=== PATIENT | male | born 1945 | race Hispanic/Latino ===

== ENCOUNTER 2022-08-23 16:17 | Observation (INO) | payer MEDICARE, MEDICAID ==
[~2022-08-23 16:17] MED LIST: Iopamidol-370 76% 500 ML 1 ML ONE
[2022-08-23] MEDS ORDERED: Nitroglycerin 2% Ointment 1 INCH/1 GM Packet ONE (16:43)
[2022-08-23] MEDS ORDERED: Aspirin Chewable 81 MG TAB ONE (16:43)
[2022-08-23] MEDS ORDERED: Acetaminophen 500 MG TAB ONE (16:57)
[2022-08-23 17:20] LABS: Hemoglobin 11.8 g/dL (14.0-18.0); Mean Corpuscular HGB CONC 33.8 g/dL (32.0-36.0); Mean Corpuscular Hemoglobin 29.7 pg (27.0-31.0); Mean Platelet Volume 8.9 fL (7.4-10.4); Platelet Count 173 10x3/uL (130-400); RBC Distribution Width 12.2 % (11.5-14.5); Red Blood Cell (RBC) Count 3.96 mill/uL (4.70-6.10); White Blood Cell (WBC) Count 8.5 10x3/uL (4.8-10.8)
[2022-08-23 17:37] LABS: ALT (SGPT) 37 U/L (8-55); AST (SGOT) 57 U/L (5-34); Albumin 3.9 g/dL (3.4-4.8); Alkaline Phosphatase 111 U/L (40-110); Anion Gap 20 mmol/L (10-20); BUN (Urea Nitrogen) 79 mg/dL (8.4-25.7); Bilirubin, Total 0.4 mg/dL (0.2-1.2); Calc. Creatinine Clearance 0 mL/min (70-130); Carbon Dioxide 19 mmol/L (23-31); Chloride 100 mmol/L (98-107); Estimated GFR 8; Globulin 4.2 g/dL (2.4-3.5); Glucose 167 mg/dL (83-110); Potassium 5.2 mmol/L (3.5-5.1); Protein, Total 8.1 g/dL (5.8-8.1); Sodium 134 mmol/L (136-145)
[2022-08-23 17:49] LABS: Lymphocytes 7 % (21-51); MDiff Complete? YES; Monocytes 5 % (0-10); Neutrophil 82 % (42-75); Platelet Morphology Comment Appears Adequate; RBC Morphology Normal; Reactive Lymphocytes 6 % (0-10)
[2022-08-23 17:55] LABS: CKMB 2.7 ng/mL (0-6.6)
[2022-08-23] MEDS ORDERED: Ondansetron PF 4 MG/2 ML Vial IVP PRN (22:36)
[2022-08-23] MEDS ORDERED: Acetaminophen 325 MG TAB PO PRN (22:36)
[2022-08-23 22:38] LABS: Troponin I 0.086 ng/mL (< 0.028)
[2022-08-23] MEDS ORDERED: Nitroglycerin 0.4 MG TAB (25 Tab Bottle) SL PRN (23:10)
[2022-08-23 23:12] LABS: SARS-CoV-2 NAA Rapid Test Not Detected (NotDetected)
[2022-08-24 01:09] LABS: Troponin I 0.093 ng/mL (< 0.028)
[2022-08-24 05:37] LABS: #Eosinphils 0.1 thou/uL (0.0-0.7); #Monocytes 0.5 thou/uL (0.11-0.59); #Neutrophils 4.1 thou/uL (1.40-6.50); %Basophils 0.4 % (0.0-1.0); %Eosinophils 2.5 % (0.0-10.0); %Lymphocytes 16.8 % (21.0-51.0); %Monocytes 8.7 % (0.0-10.0); %Neutrophils 71.6 % (42.0-75.0); Hemoglobin 9.6 g/dL (14.0-18.0); Mean Corpuscular HGB CONC 33.4 g/dL (32.0-36.0); Mean Corpuscular Hemoglobin 29.5 pg (27.0-31.0); Mean Corpuscular Volume 88.5 fl (78.0-98.0); Mean Platelet Volume 8.1 fL (7.4-10.4); Platelet Count 175 10x3/uL (130-400); Red Blood Cell (RBC) Count 3.25 mill/uL (4.70-6.10); White Blood Cell (WBC) Count 5.7 10x3/uL (4.8-10.8)
[2022-08-24 06:00] LABS: Anion Gap 12 mmol/L (10-20); BUN (Urea Nitrogen) 68 mg/dL (8.4-25.7); Calc. Creatinine Clearance 0 mL/min (70-130); Calcium 8.4 mg/dL (7.8-10.44); Carbon Dioxide 24 mmol/L (23-31); Chloride 104 mmol/L (98-107); Estimated GFR 9; Glucose 171 mg/dL (83-110); Potassium 3.4 mmol/L (3.5-5.1); Sodium 137 mmol/L (136-145)
[2022-08-24] MEDS ORDERED: Metoprolol Tartrate 25 MG TAB PO SCH (09:00)
[2022-08-24] MEDS ORDERED: Losartan 25 MG TAB PO SCH (09:00)
[2022-08-24] MEDS ORDERED: Heparin 5,000 UNITS/ML VIAL SC SCH (09:00)
[2022-08-24] MEDS ORDERED: Clopidogrel Bisulfate 75 MG TAB PO SCH (09:00)
[2022-08-24] MEDS ORDERED: NIFEdipine XL 60 MG TAB PO SCH (09:00)
[2022-08-24] MEDS ORDERED: Aspirin 81 mg Enteric Coated Tablet PO SCH (09:00)
[2022-08-24 10:38] VITALS: BMI 28.7
[2022-08-24 11:01] LABS: Troponin I 0.098 ng/mL (< 0.028)
[2022-08-24 12:30] LABS: Troponin I 0.095 ng/mL (< 0.028)
[2022-08-24 14:41] LABS: Troponin I 0.091 ng/mL (< 0.028)
[2022-08-24 16:13] VITALS: BP 137/54; TEMP 98.6
[2022-08-24 18:03] LABS: Troponin I 0.098 ng/mL (< 0.028)
[2022-08-24] MEDS ORDERED: Atorvastatin Calcium 40 MG TAB PO SCH (21:00)
[2022-08-25] MEDS ORDERED: Docusate 100 MG CAP PO SCH (09:00)
== END 2022-08-24 18:16 | disposition home or self-care (01) ==
LOC: ERS 16:17 → ERHOLD 21:08 → 2SW 21:38
PROVIDERS: ADMIT Internal Medicine; ATTEND Nurse Practitioner Family
DX: R42 Dizziness and giddiness (principal); R07.89 Other chest pain; E87.5 Hyperkalemia; I13.2 Hypertensive heart and chronic kidney disease with heart failure and with stage 5 chronic kidney disease, or end stage renal disease; E11.22 Type 2 diabetes mellitus with diabetic chronic kidney disease; N18.6 End stage renal disease; I50.42 Chronic combined systolic (congestive) and diastolic (congestive) heart failure; D63.1 Anemia in chronic kidney disease; I25.10 Atherosclerotic heart disease of native coronary artery without angina pectoris; R91.1 Solitary pulmonary nodule; E11.42 Type 2 diabetes mellitus with diabetic polyneuropathy; K21.9 Gastro-esophageal reflux disease without esophagitis; I44.0 Atrioventricular block, first degree; I49.3 Ventricular premature depolarization; I44.7 Left bundle-branch block, unspecified; N25.81 Secondary hyperparathyroidism of renal origin; I25.5 Ischemic cardiomyopathy; Z86.73 Personal history of transient ischemic attack (TIA), and cerebral infarction without residual deficits; Z79.02 Long term (current) use of antithrombotics/antiplatelets; Z79.4 Long term (current) use of insulin; Z79.82 Long term (current) use of aspirin; Z79.899 Other long term (current) drug therapy; Z88.0 Allergy status to penicillin; Z88.8 Allergy status to other drugs, medicaments and biological substances; Z95.5 Presence of coronary angioplasty implant and graft; Z99.2 Dependence on renal dialysis; Z20.822 Contact with and (suspected) exposure to COVID-19
CPT/HCPCS: 70450; 70496; 70498; 70551; 71045; 80048; 80053; 82553; 83880; 84484 ×4; 85025 ×2; 93005; 96360; 96361; 99285; U0002; 36415; 96372; G0378; J1644; Q9967

== ENCOUNTER 2022-09-04 10:49 | Outpatient (CLI) | payer MEDICARE, MEDICAID | END 2022-09-04 10:50 | disposition home or self-care (01) | LOC: BICCT 10:49 | PROVIDERS: ATTEND Family Medicine | DX: R91.1 Solitary pulmonary nodule (principal) | CPT/HCPCS: 71250 ==

== ENCOUNTER 2022-11-05 19:36 | Emergency (ER) | payer MEDICARE, MEDICAID ==
[~2022-11-05 19:36] MED LIST changes: -Iopamidol-370 76% 500 ML 1 ML ONE; +Iopamidol-370 76% 500 ML MDV (1 ML CHARGE) ONE
[2022-11-05 20:51] LABS: #Eosinphils 0.2 thou/uL (0.0-0.7); #Lymphocytes 0.9 thou/uL (1.20-3.40); #Monocytes 0.7 thou/uL (0.11-0.59); #Neutrophils 6.5 thou/uL (1.40-6.50); %Basophils 0.4 % (0.0-1.0); %Eosinophils 2.3 % (0.0-10.0); %Lymphocytes 11.1 % (21.0-51.0); %Monocytes 8.2 % (0.0-10.0); Hemoglobin 10.9 g/dL (14.0-18.0); Mean Corpuscular HGB CONC 33.1 g/dL (32.0-36.0); Mean Corpuscular Hemoglobin 29.8 pg (27.0-31.0); Mean Corpuscular Volume 90.3 fl (78.0-98.0); Mean Platelet Volume 8.7 fL (7.4-10.4); Platelet Count 167 10x3/uL (130-400); RBC Distribution Width 12.2 % (11.5-14.5); Red Blood Cell (RBC) Count 3.65 mill/uL (4.70-6.10); White Blood Cell (WBC) Count 8.3 10x3/uL (4.8-10.8)
[2022-11-05 21:11] LABS: ALT (SGPT) 16 U/L (8-55); AST (SGOT) 13 U/L (5-34); Albumin 3.7 g/dL (3.4-4.8); Alkaline Phosphatase 84 U/L (40-110); Anion Gap 15 mmol/L (10-20); BUN (Urea Nitrogen) 69 mg/dL (8.4-25.7); Bilirubin, Total 0.3 mg/dL (0.2-1.2); Calc. Creatinine Clearance 0 mL/min (70-130); Calcium 11.4 mg/dL (7.8-10.44); Carbon Dioxide 25 mmol/L (23-31); Chloride 102 mmol/L (98-107); Estimated GFR 6; Globulin 2.8 g/dL (2.4-3.5); Glucose 131 mg/dL (83-110); Potassium 3.8 mmol/L (3.5-5.1); Protein, Total 6.5 g/dL (5.8-8.1); Sodium 138 mmol/L (136-145)
[2022-11-05] MEDS ORDERED: Clopidogrel Bisulfate 75 MG TAB ONE (22:16)
[2022-11-05] MEDS ORDERED: Nitroglycerin 2% Ointment 1 INCH/1 GM Packet ONE (22:16)
[2022-11-06 00:56] LABS: CKMB 3.3 ng/mL (0-6.6)
== END 2022-11-05 23:40 | disposition home or self-care (01) ==
LOC: ERS 19:36
DX: R07.89 Other chest pain (principal); E11.42 Type 2 diabetes mellitus with diabetic polyneuropathy; I25.10 Atherosclerotic heart disease of native coronary artery without angina pectoris; E78.5 Hyperlipidemia, unspecified; E11.22 Type 2 diabetes mellitus with diabetic chronic kidney disease; N18.9 Chronic kidney disease, unspecified
CPT/HCPCS: 36415; 71045; 71275; 74174; 80053; 82553; 83690; 83880; 84484; 85025; 93005; Q9967

== ENCOUNTER 2023-03-03 12:44 | Inpatient (IN) | payer MEDICARE, MEDICAID ==
[2023-03-03 14:25] LABS: #Basophils 0.1 thou/uL (0.0-0.2); #Eosinphils 0.2 thou/uL (0.0-0.7); #Neutrophils 8.1 thou/uL (1.40-6.50); %Basophils 0.6 % (0.0-1.0); %Eosinophils 1.5 % (0.0-10.0); %Lymphocytes 8.4 % (21.0-51.0); %Monocytes 9.4 % (0.0-10.0); %Neutrophils 78.3 % (42.0-75.0); Hemoglobin 9.7 g/dL (14.0-18.0); Mean Corpuscular HGB CONC 32.3 g/dL (32.0-36.0); Mean Corpuscular Hemoglobin 29.8 pg (27.0-31.0); Mean Corpuscular Volume 92.3 fl (78.0-98.0); Mean Platelet Volume 10.1 fL (7.4-10.4); Platelet Count 236 10x3/uL (130-400); RBC Distribution Width 13.6 % (11.5-14.5); Red Blood Cell (RBC) Count 3.25 mill/uL (4.70-6.10); White Blood Cell (WBC) Count 10.3 10x3/uL (4.8-10.8)
[2023-03-03 14:50] LABS: ALT (SGPT) 33 U/L (8-55); AST (SGOT) 26 U/L (5-34); Albumin 3.4 g/dL (3.4-4.8); Alkaline Phosphatase 100 U/L (40-110); Anion Gap 20 mmol/L (10-20); BUN (Urea Nitrogen) 92 mg/dL (8.4-25.7); Bilirubin, Total 0.4 mg/dL (0.2-1.2); Calc. Creatinine Clearance 0 mL/min (70-130); Calcium 7.9 mg/dL (7.8-10.44); Carbon Dioxide 22 mmol/L (23-31); Chloride 97 mmol/L (98-107); Estimated GFR 7; Globulin 2.6 g/dL (2.4-3.5); Glucose 130 mg/dL (83-110); Potassium 4.1 mmol/L (3.5-5.1); Sodium 135 mmol/L (136-145)
[2023-03-03 15:13] LABS: CKMB 5.4 ng/mL (0-6.6)
[2023-03-03] MEDS ORDERED: Aspirin Chewable 81 MG TAB ONE (15:32)
[2023-03-03] MEDS ORDERED: Furosemide 40 MG/4 ML VIAL ONE (15:32)
[2023-03-03] MEDS ORDERED: Acetaminophen 650 MG Suppository PR PRN (16:06)
[2023-03-03] MEDS ORDERED: Acetaminophen 325 MG TAB PO PRN (16:06)
[2023-03-03] MEDS ORDERED: Ondansetron PF 4 MG/2 ML Vial IVP PRN (16:06)
[2023-03-03] MEDS ORDERED: Ondansetron ODT 4 MG TAB PO PRN (16:06)
[2023-03-03 17:55] VITALS: BMI 25.2
[2023-03-03] MEDS: Heparin 5,000 UNITS/ML VIAL SC SCH (20:24)
[2023-03-03] MEDS ORDERED: Glucagon 1 MG/ML KIT IM PRN (21:38)
[2023-03-03] MEDS ORDERED: Dextrose 50% Abboject 50 ML SYRINGE SLOW IVP PRN (21:38)
[2023-03-03] MEDS ORDERED: Dextrose 5% in Water 1,000 ML IV PRN (21:38)
[2023-03-03] MEDS: HumaLOG 300 UNITS/3 ML VIAL SC PRN (22:16)
[2023-03-03 23:25] LABS: Hep B Core Total Ab Non-Reactive (NonReactive); Hep B Core Total Index 0.11 S/CO (0-0.79)
[2023-03-03 23:26] LABS: HBSAg Index 0.21 S/CO (0-0.99); Hep B Surf Ag Non-Reactive S/CO (NonReactive); Hep C IgG Ab Non-Reactive S/CO (NonReactive); Hep C Index 0.12 S/CO (0-0.79)
[2023-03-03 23:31] LABS: HBSAB Concentration 12.79 mIU/mL; Hep B Surf AB Reactive (NonReactive)
[2023-03-04 05:33] LABS: #Basophils 0.1 thou/uL (0.0-0.2); #Eosinphils 0.1 thou/uL (0.0-0.7); #Monocytes 1.1 thou/uL (0.11-0.59); %Basophils 0.5 % (0.0-1.0); %Eosinophils 1.4 % (0.0-10.0); %Lymphocytes 5.6 % (21.0-51.0); %Neutrophils 79.5 % (42.0-75.0); Hemoglobin 9.9 g/dL (14.0-18.0); Mean Corpuscular HGB CONC 32.1 g/dL (32.0-36.0); Mean Corpuscular Hemoglobin 29.6 pg (27.0-31.0); Mean Corpuscular Volume 91.9 fl (78.0-98.0); Mean Platelet Volume 10.7 fL (7.4-10.4); Platelet Count 299 10x3/uL (130-400); RBC Distribution Width 13.6 % (11.5-14.5); Red Blood Cell (RBC) Count 3.35 mill/uL (4.70-6.10); White Blood Cell (WBC) Count 10.1 10x3/uL (4.8-10.8)
[2023-03-04 05:54] LABS: Anion Gap 20 mmol/L (10-20); BUN (Urea Nitrogen) 83 mg/dL (8.4-25.7); Calc. Creatinine Clearance 8 mL/min (70-130); Calcium 8.4 mg/dL (7.8-10.44); Carbon Dioxide 22 mmol/L (23-31); Chloride 97 mmol/L (98-107); Estimated GFR 7; Glucose 318 mg/dL (83-110); Potassium 3.5 mmol/L (3.5-5.1); Sodium 135 mmol/L (136-145)
[2023-03-04] MEDS: HumaLOG 300 UNITS/3 ML VIAL SC PRN ×3 (06:38→21:20)
[2023-03-04 08:34] LABS: Critical Call Chem Troponin I RESULT DECREASING; Troponin I 0.797 ng/mL (< 0.028)
[2023-03-04] MEDS: Aspirin 81 mg Enteric Coated Tablet PO SCH (08:59)
[2023-03-04] MEDS: Clopidogrel Bisulfate 75 MG TAB PO SCH (08:59)
[2023-03-04] MEDS: Metoprolol Tartrate 25 MG TAB PO SCH ×2 (09:00→21:21)
[2023-03-04] MEDS: Heparin 5,000 UNITS/ML VIAL SC SCH ×2 (09:00→21:21)
[2023-03-04] MEDS: Docusate 100 MG CAP PO SCH (09:00)
[2023-03-04] MEDS: Atorvastatin Calcium 40 MG TAB PO SCH (21:21)
[2023-03-05 05:49] LABS: #Basophils 0.1 thou/uL (0.0-0.2); #Eosinphils 0.2 thou/uL (0.0-0.7); #Neutrophils 8.5 thou/uL (1.40-6.50); %Basophils 0.6 % (0.0-1.0); %Eosinophils 1.6 % (0.0-10.0); %Lymphocytes 7.4 % (21.0-51.0); %Monocytes 9.6 % (0.0-10.0); %Neutrophils 79.5 % (42.0-75.0); Hemoglobin 10.2 g/dL (14.0-18.0); Mean Corpuscular HGB CONC 31.3 g/dL (32.0-36.0); Mean Corpuscular Hemoglobin 29.1 pg (27.0-31.0); Mean Corpuscular Volume 93.1 fl (78.0-98.0); Mean Platelet Volume 10.5 fL (7.4-10.4); Platelet Count 304 10x3/uL (130-400); White Blood Cell (WBC) Count 10.7 10x3/uL (4.8-10.8)
[2023-03-05] MEDS: HumaLOG 300 UNITS/3 ML VIAL SC PRN ×2 (06:06→19:53)
[2023-03-05 06:16] LABS: Anion Gap 23 mmol/L (10-20); BUN (Urea Nitrogen) 77 mg/dL (8.4-25.7); Calc. Creatinine Clearance 9 mL/min (70-130); Calcium 8.6 mg/dL (7.8-10.44); Carbon Dioxide 22 mmol/L (23-31); Chloride 96 mmol/L (98-107); Estimated GFR 7; Glucose 307 mg/dL (83-110); Potassium 3.7 mmol/L (3.5-5.1); Sodium 137 mmol/L (136-145)
[2023-03-05] MEDS: Docusate 100 MG CAP PO SCH (09:18)
[2023-03-05] MEDS: Aspirin 81 mg Enteric Coated Tablet PO SCH (09:18)
[2023-03-05] MEDS: Clopidogrel Bisulfate 75 MG TAB PO SCH (09:18)
[2023-03-05] MEDS: Heparin 5,000 UNITS/ML VIAL SC SCH ×2 (09:18→19:54)
[2023-03-05] MEDS: Metoprolol Tartrate 25 MG TAB PO SCH ×2 (09:19→19:54)
[2023-03-05] MEDS ORDERED: Heparin 10,000 UNITS/ 10 ML VIAL ONE (10:59)
[2023-03-05] MEDS ORDERED: Ipratropium/Albuterol 3 ML NEB NEB SCH (16:45)
[2023-03-05] MEDS: Atorvastatin Calcium 40 MG TAB PO SCH (19:54)
[2023-03-05] MEDS ORDERED: Sodium Chloride 0.9% 250 ML IV SCH ×2 (20:00)
[2023-03-05 20:57] LABS: Critical Call Chem Troponin I RESULT DECREASING
[2023-03-05 22:01] LABS: Glucose 582 mg/dL (83-110)
[2023-03-05 22:24] LABS: CKMB 2.4 ng/mL (0-6.6)
[2023-03-06] MEDS: HumaLOG 300 UNITS/3 ML VIAL SC PRN ×2 (00:27→04:10)
[2023-03-06 07:05] LABS: Anion Gap 21 mmol/L (10-20); BUN (Urea Nitrogen) 67 mg/dL (8.4-25.7); Calc. Creatinine Clearance 9 mL/min (70-130); Calcium 8.6 mg/dL (7.8-10.44); Carbon Dioxide 21 mmol/L (23-31); Chloride 94 mmol/L (98-107); Estimated GFR 8; Glucose 293 mg/dL (83-110); Potassium 4.2 mmol/L (3.5-5.1); Sodium 132 mmol/L (136-145)
[2023-03-06 07:35] LABS: CKMB 2.5 ng/mL (0-6.6)
[2023-03-06] MEDS: HumaLOG 300 UNITS/3 ML VIAL SC SCH ×3 (08:39→19:15)
[2023-03-06] MEDS: Docusate 100 MG CAP PO SCH (08:40)
[2023-03-06] MEDS: Clopidogrel Bisulfate 75 MG TAB PO SCH (08:40)
[2023-03-06] MEDS: Aspirin 81 mg Enteric Coated Tablet PO SCH (08:40)
[2023-03-06] MEDS: Metoprolol Tartrate 25 MG TAB PO SCH ×2 (08:40→20:48)
[2023-03-06] MEDS: Heparin 5,000 UNITS/ML VIAL SC SCH ×2 (08:40→20:48)
[2023-03-06 09:53] LABS: Troponin I 0.613 ng/mL (< 0.028)
[2023-03-06] MEDS: ALPRAZolam 1 MG TAB PO PRN (11:48)
[2023-03-06] MEDS: Atorvastatin Calcium 40 MG TAB PO SCH (20:48)
[2023-03-07 06:08] LABS: Anion Gap 22 mmol/L (10-20); BUN (Urea Nitrogen) 55 mg/dL (8.4-25.7); Calc. Creatinine Clearance 11 mL/min (70-130); Calcium 8.7 mg/dL (7.8-10.44); Carbon Dioxide 22 mmol/L (23-31); Chloride 94 mmol/L (98-107); Estimated GFR 10; Glucose 292 mg/dL (83-110); Potassium 4.9 mmol/L (3.5-5.1); Sodium 133 mmol/L (136-145)
[2023-03-07] MEDS ORDERED: Bisacodyl 10 MG SUPP PR PRN (07:28)
[2023-03-07] MEDS: Aspirin 81 mg Enteric Coated Tablet PO SCH (08:57)
[2023-03-07] MEDS: Clopidogrel Bisulfate 75 MG TAB PO SCH (08:57)
[2023-03-07] MEDS: Metoprolol Tartrate 25 MG TAB PO SCH ×2 (08:57→20:34)
[2023-03-07] MEDS: Senokot S 8.6-50 MG TAB PO SCH ×2 (08:57→20:34)
[2023-03-07] MEDS: Polyethylene Glycol 3350 17 GM Packet PO SCH (08:58)
[2023-03-07] MEDS: HumaLOG 300 UNITS/3 ML VIAL SC SCH ×3 (08:58→17:33)
[2023-03-07] MEDS: Heparin 5,000 UNITS/ML VIAL SC SCH ×2 (09:00→20:35)
[2023-03-07] MEDS ORDERED: Heparin 10,000 UNITS/ 10 ML VIAL ONE (09:00)
[2023-03-07] MEDS: HumaLOG 300 UNITS/3 ML VIAL SC PRN ×2 (11:24→20:36)
[2023-03-07] MEDS: Atorvastatin Calcium 40 MG TAB PO SCH (20:34)
[2023-03-08 05:14] LABS: Anion Gap 21 mmol/L (10-20); BUN (Urea Nitrogen) 53 mg/dL (8.4-25.7); Calc. Creatinine Clearance 12 mL/min (70-130); Calcium 8.6 mg/dL (7.8-10.44); Carbon Dioxide 22 mmol/L (23-31); Chloride 96 mmol/L (98-107); Estimated GFR 11; Glucose 284 mg/dL (83-110); Potassium 4.8 mmol/L (3.5-5.1); Sodium 134 mmol/L (136-145)
[2023-03-08] MEDS: HumaLOG 300 UNITS/3 ML VIAL SC PRN ×4 (06:27→22:08)
[2023-03-08] MEDS: Aspirin 81 mg Enteric Coated Tablet PO SCH (08:41)
[2023-03-08] MEDS: Metoprolol Tartrate 25 MG TAB PO SCH ×2 (08:41→22:04)
[2023-03-08] MEDS: Clopidogrel Bisulfate 75 MG TAB PO SCH (08:42)
[2023-03-08] MEDS: Senokot S 8.6-50 MG TAB PO SCH ×2 (08:42→22:05)
[2023-03-08] MEDS: Heparin 5,000 UNITS/ML VIAL SC SCH ×2 (08:47→22:04)
[2023-03-08] MEDS: HumaLOG 300 UNITS/3 ML VIAL SC SCH (08:49)
[2023-03-08] MEDS ORDERED: GUAIFENESIN SF SOLN 200 MG/10 ML UDCUP PO PRN (09:28)
[2023-03-08] MEDS: Insulin Glargine 30 UNITS/0.3 ML VIAL SC SCH ×2 (09:30→22:03)
[2023-03-08] MEDS: Polyethylene Glycol 3350 17 GM Packet PO SCH (09:31)
[2023-03-08] MEDS: Nitroglycerin 2% Ointment 1 INCH/1 GM Packet TOP SCH ×3 (12:11→22:05)
[2023-03-08] MEDS: ALPRAZolam 1 MG TAB PO PRN (12:11)
[2023-03-08] MEDS: Atorvastatin Calcium 40 MG TAB PO SCH (22:04)
[2023-03-09 04:16] LABS: #Eosinphils 0.3 thou/uL (0.0-0.7); #Monocytes 1.1 thou/uL (0.11-0.59); #Neutrophils 9.5 thou/uL (1.40-6.50); %Basophils 0.3 % (0.0-1.0); %Eosinophils 2.2 % (0.0-10.0); %Lymphocytes 5.3 % (21.0-51.0); %Monocytes 9.3 % (0.0-10.0); %Neutrophils 81.4 % (42.0-75.0); Hemoglobin 9.3 g/dL (14.0-18.0); Mean Corpuscular Hemoglobin 29.7 pg (27.0-31.0); Platelet Count 249 10x3/uL (130-400); RBC Distribution Width 14.1 % (11.5-14.5); Red Blood Cell (RBC) Count 3.13 mill/uL (4.70-6.10); White Blood Cell (WBC) Count 11.6 10x3/uL (4.8-10.8)
[2023-03-09 04:52] LABS: ALT (SGPT) 715 U/L (8-55); AST (SGOT) 382 U/L (5-34); Albumin 3.1 g/dL (3.4-4.8); Alkaline Phosphatase 573 U/L (40-110); Anion Gap 22 mmol/L (10-20); BUN (Urea Nitrogen) 86 mg/dL (8.4-25.7); Bilirubin, Total 0.4 mg/dL (0.2-1.2); Calc. Creatinine Clearance 8 mL/min (70-130); Calcium 8.4 mg/dL (7.8-10.44); Carbon Dioxide 22 mmol/L (23-31); Chloride 94 mmol/L (98-107); Estimated GFR 7; Globulin 3.4 g/dL (2.4-3.5); Glucose 146 mg/dL (83-110); Potassium 4.5 mmol/L (3.5-5.1); Protein, Total 6.5 g/dL (5.8-8.1); Sodium 133 mmol/L (136-145)
[2023-03-09] MEDS: Nitroglycerin 2% Ointment 1 INCH/1 GM Packet TOP SCH ×3 (06:52→15:00)
[2023-03-09] MEDS ORDERED: Heparin 10,000 UNITS/ 10 ML VIAL ONE (08:59)
[2023-03-09] MEDS: Insulin Glargine 30 UNITS/0.3 ML VIAL SC SCH ×2 (13:21→21:41)
[2023-03-09] MEDS: Metoprolol Tartrate 25 MG TAB PO SCH ×2 (14:04→21:41)
[2023-03-09] MEDS: Senokot S 8.6-50 MG TAB PO SCH ×2 (14:04→21:41)
[2023-03-09] MEDS: Aspirin 81 mg Enteric Coated Tablet PO SCH (14:06)
[2023-03-09] MEDS: Clopidogrel Bisulfate 75 MG TAB PO SCH (14:06)
[2023-03-09] MEDS: Heparin 5,000 UNITS/ML VIAL SC SCH ×2 (14:07→21:40)
[2023-03-09] MEDS: Polyethylene Glycol 3350 17 GM Packet PO SCH (14:07)
[2023-03-09] MEDS: Benzonatate 100 MG CAP PO SCH (21:39)
[2023-03-09] MEDS: Atorvastatin Calcium 40 MG TAB PO SCH (21:40)
[2023-03-09] MEDS: ALPRAZolam 1 MG TAB PO PRN (21:41)
[2023-03-09] MEDS: HumaLOG 300 UNITS/3 ML VIAL SC PRN (21:41)
[2023-03-10] MEDS: Nitroglycerin 2% Ointment 1 INCH/1 GM Packet TOP SCH ×3 (00:41→13:04)
[2023-03-10] MEDS: Aspirin 81 mg Enteric Coated Tablet PO SCH (08:33)
[2023-03-10] MEDS: Senokot S 8.6-50 MG TAB PO SCH (08:33)
[2023-03-10] MEDS: Metoprolol Tartrate 25 MG TAB PO SCH (08:33)
[2023-03-10] MEDS: Heparin 5,000 UNITS/ML VIAL SC SCH (08:35)
[2023-03-10] MEDS: Clopidogrel Bisulfate 75 MG TAB PO SCH (08:35)
[2023-03-10] MEDS: Insulin Glargine 30 UNITS/0.3 ML VIAL SC SCH (08:35)
[2023-03-10] MEDS: Polyethylene Glycol 3350 17 GM Packet PO SCH (08:35)
[2023-03-10] MEDS: Benzonatate 100 MG CAP PO SCH ×2 (08:35→14:59)
[2023-03-10] MEDS: HumaLOG 300 UNITS/3 ML VIAL SC PRN (11:08)
[2023-03-10 15:35] VITALS: BP 132/63; TEMP 97.6
[2023-03-10] MEDS: ALPRAZolam 1 MG TAB PO PRN (18:27)
== END 2023-03-10 18:40 | disposition short-term general hospital (02) | DRG 280 ==
LOC: ERS 12:44 → 2SW 15:33 → OBSVTOIN 03-04 15:40
PROVIDERS: ADMIT Internal Medicine; ATTEND Family Medicine
PROC: 5A1D70Z Performance of Urinary Filtration, Intermittent, Less than 6 Hours Per Day (ICD-10-PCS; principal; 2023-03-09)
DX: I11.0 Hypertensive heart disease with heart failure (principal); I50.43 Acute on chronic combined systolic (congestive) and diastolic (congestive) heart failure; I21.A1 Myocardial infarction type 2; N18.6 End stage renal disease; I22.2 Subsequent non-ST elevation (NSTEMI) myocardial infarction; J96.01 Acute respiratory failure with hypoxia; N25.81 Secondary hyperparathyroidism of renal origin; E78.5 Hyperlipidemia, unspecified; I25.10 Atherosclerotic heart disease of native coronary artery without angina pectoris; D63.1 Anemia in chronic kidney disease; G47.33 Obstructive sleep apnea (adult) (pediatric); I44.30 Unspecified atrioventricular block; I44.7 Left bundle-branch block, unspecified; E11.42 Type 2 diabetes mellitus with diabetic polyneuropathy; K21.9 Gastro-esophageal reflux disease without esophagitis; E11.22 Type 2 diabetes mellitus with diabetic chronic kidney disease; F41.9 Anxiety disorder, unspecified; I25.118 Atherosclerotic heart disease of native coronary artery with other forms of angina pectoris; I34.0 Nonrheumatic mitral (valve) insufficiency; Z88.8 Allergy status to other drugs, medicaments and biological substances; Z88.0 Allergy status to penicillin; Z79.899 Other long term (current) drug therapy; Z79.82 Long term (current) use of aspirin; Z99.2 Dependence on renal dialysis; Z95.5 Presence of coronary angioplasty implant and graft; Z90.49 Acquired absence of other specified parts of digestive tract; Z86.73 Personal history of transient ischemic attack (TIA), and cerebral infarction without residual deficits
CPT/HCPCS: 36415; 36416; 71045; 80048; 80053; 82553; 83880; 84484; 85025; 86704; 90935; 90945; 93005; 93010; 93306; 94640; 94760; 96372; 96374; G0257; G0378; J1644; J1815; J1940; J7030; J7620

== ENCOUNTER 2023-05-16 06:32 | Observation (INO) | payer MEDICARE, MEDICAID ==
[2023-05-16 07:54] LABS: #Eosinphils 0.1 thou/uL (0.0-0.7); #Monocytes 1.2 thou/uL (0.11-0.59); #Neutrophils 9.5 thou/uL (1.40-6.50); %Basophils 0.2 % (0.0-1.0); %Eosinophils 0.5 % (0.0-10.0); %Lymphocytes 6.2 % (21.0-51.0); %Monocytes 10.5 % (0.0-10.0); %Neutrophils 82.1 % (42.0-75.0); Hemoglobin 13.4 g/dL (14.0-18.0); Mean Corpuscular HGB CONC 31.9 g/dL (32.0-36.0); Mean Corpuscular Hemoglobin 29.8 pg (27.0-31.0); Mean Corpuscular Volume 93.3 fl (78.0-98.0); Mean Platelet Volume 11.3 fL (7.4-10.4); Platelet Count 182 10x3/uL (130-400); RBC Distribution Width 15.3 % (11.5-14.5); White Blood Cell (WBC) Count 11.6 10x3/uL (4.8-10.8)
[2023-05-16 08:19] LABS: ALT (SGPT) 38 U/L (8-55); AST (SGOT) 21 U/L (5-34); Albumin 3.7 g/dL (3.4-4.8); Alkaline Phosphatase 114 U/L (40-110); Anion Gap 18 mmol/L (10-20); BUN (Urea Nitrogen) 74 mg/dL (8.4-25.7); Bilirubin, Total 0.5 mg/dL (0.2-1.2); Calc. Creatinine Clearance 0 mL/min (70-130); Calcium 9.6 mg/dL (7.8-10.44); Carbon Dioxide 27 mmol/L (23-31); Chloride 94 mmol/L (98-107); Estimated GFR 9; Globulin 3.9 g/dL (2.4-3.5); Glucose 222 mg/dL (83-110); Potassium 4.1 mmol/L (3.5-5.1); Protein, Total 7.6 g/dL (5.8-8.1); Sodium 135 mmol/L (136-145)
[2023-05-16 08:29] LABS: Troponin I 0.298 ng/mL (< 0.028)
[2023-05-16] MEDS ORDERED: Aspirin Chewable 81 MG TAB ONE (08:59)
[2023-05-16] MEDS ORDERED: Acetaminophen 500 MG TAB ONE (08:59)
[2023-05-16] MEDS ORDERED: Morphine 4 MG/ML VIAL SLOW IVP PRN (09:13)
[2023-05-16] MEDS ORDERED: Morphine 2 MG/ML VIAL SLOW IVP PRN (09:13)
[2023-05-16] MEDS ORDERED: Acetaminophen 325 MG TAB PO PRN (09:13)
[2023-05-16] MEDS ORDERED: Dextrose 50% Abboject 50 ML SYRINGE SLOW IVP PRN (09:17)
[2023-05-16] MEDS ORDERED: HumaLOG 300 UNITS/3 ML VIAL SC PRN (09:17)
[2023-05-16] MEDS ORDERED: Glucagon 1 MG/ML KIT IM PRN (09:17)
[2023-05-16] MEDS ORDERED: Dextrose 5% in Water 1,000 ML IV PRN (09:17)
[2023-05-16 10:48] LABS: Troponin I 0.303 ng/mL (< 0.028)
[2023-05-16 12:24] LABS: Glucose 131 mg/dL (83-110)
[2023-05-16 13:09] VITALS: BMI 25.3
[2023-05-16] MEDS ORDERED: Heparin 10,000 UNITS/ 10 ML VIAL ONE (16:14)
[2023-05-16 17:37] LABS: Glucose 168 mg/dL (83-110)
[2023-05-16] MEDS: Heparin 5,000 UNITS/ML VIAL SC SCH ×2 (18:26→20:49)
[2023-05-16] MEDS: Metoprolol Tartrate 25 MG TAB PO SCH (20:49)
[2023-05-16] MEDS: Ranolazine 500 MG ER.TAB PO SCH (20:49)
[2023-05-16] MEDS ORDERED: Atorvastatin Calcium 40 MG TAB PO SCH (21:00)
[2023-05-16] MEDS ORDERED: Insulin Glargine 30 UNITS/0.3 ML VIAL SC SCH (21:00)
[2023-05-17 04:49] LABS: #Eosinphils 0.2 thou/uL (0.0-0.7); #Monocytes 1.2 thou/uL (0.11-0.59); #Neutrophils 6.3 thou/uL (1.40-6.50); %Basophils 0.3 % (0.0-1.0); %Eosinophils 2.1 % (0.0-10.0); %Lymphocytes 11.2 % (21.0-51.0); %Monocytes 13.1 % (0.0-10.0); %Neutrophils 72.5 % (42.0-75.0); Hemoglobin 12.9 g/dL (14.0-18.0); Mean Corpuscular HGB CONC 32.3 g/dL (32.0-36.0); Mean Corpuscular Hemoglobin 30.1 pg (27.0-31.0); Mean Corpuscular Volume 93.2 fl (78.0-98.0); Mean Platelet Volume 10.7 fL (7.4-10.4); Platelet Count 193 10x3/uL (130-400); RBC Distribution Width 15.2 % (11.5-14.5); Red Blood Cell (RBC) Count 4.29 mill/uL (4.70-6.10); White Blood Cell (WBC) Count 8.8 10x3/uL (4.8-10.8)
[2023-05-17 05:20] LABS: Anion Gap 17 mmol/L (10-20); BUN (Urea Nitrogen) 73 mg/dL (8.4-25.7); Calc. Creatinine Clearance 11 mL/min (70-130); Calcium 9.1 mg/dL (7.8-10.44); Carbon Dioxide 25 mmol/L (23-31); Chloride 97 mmol/L (98-107); Estimated GFR 9; Glucose 113 mg/dL (83-110); Potassium 3.8 mmol/L (3.5-5.1); Sodium 135 mmol/L (136-145)
[2023-05-17 07:41] LABS: Glucose 100 mg/dL (83-110)
[2023-05-17] MEDS: Heparin 5,000 UNITS/ML VIAL SC SCH (07:59)
[2023-05-17] MEDS: Metoprolol Tartrate 25 MG TAB PO SCH (08:00)
[2023-05-17] MEDS: Ranolazine 500 MG ER.TAB PO SCH (08:01)
[2023-05-17] MEDS ORDERED: Insulin Glargine 30 UNITS/0.3 ML VIAL SC SCH (09:00)
[2023-05-17] MEDS ORDERED: Mirabegron ER 25 MG ER.TAB PO SCH (09:00)
[2023-05-17] MEDS ORDERED: Folic Acid/Vit B Comp W-C PO SCH (09:00)
[2023-05-17] MEDS ORDERED: Clopidogrel Bisulfate 75 MG TAB PO SCH (09:00)
[2023-05-17] MEDS ORDERED: Aspirin 81 mg Enteric Coated Tablet PO SCH (09:00)
[2023-05-17 11:57] LABS: Glucose 234 mg/dL (83-110)
[2023-05-17 12:30] VITALS: BP 156/74; TEMP 97.8
== END 2023-05-17 16:37 | disposition home or self-care (01) ==
LOC: ERS 06:32 → SUATTDRO 06:32 → ERHOLD 09:13 → 2SW 18:17
PROVIDERS: ADMIT Family Medicine; ATTEND Family Medicine
DX: R07.9 Chest pain, unspecified (principal); E11.22 Type 2 diabetes mellitus with diabetic chronic kidney disease; I12.9 Hypertensive chronic kidney disease with stage 1 through stage 4 chronic kidney disease, or unspecified chronic kidney disease; N18.6 End stage renal disease; D63.1 Anemia in chronic kidney disease; E87.1 Hypo-osmolality and hyponatremia; E78.5 Hyperlipidemia, unspecified; K21.9 Gastro-esophageal reflux disease without esophagitis; R60.0 Localized edema; I25.10 Atherosclerotic heart disease of native coronary artery without angina pectoris; I25.2 Old myocardial infarction; Z86.73 Personal history of transient ischemic attack (TIA), and cerebral infarction without residual deficits; Z88.0 Allergy status to penicillin; Z88.8 Allergy status to other drugs, medicaments and biological substances; Z79.82 Long term (current) use of aspirin; Z79.899 Other long term (current) drug therapy; Z79.84 Long term (current) use of oral hypoglycemic drugs
CPT/HCPCS: 71045; 80048; 80053; 82947 ×3; 82962 ×2; 84484 ×2; 85025 ×2; 93005; 94760; 96372 ×2; 99285; G0378 ×3; 36415; 36416; J1644; J1815

== ENCOUNTER 2023-12-15 18:48 | Observation (INO) | payer MEDICARE, MEDICAID ==
[2023-12-15 19:51] LABS: #Basophils 0.05 10x3/uL (0.0-0.2); %Basophils 0.6 % (0.0-1.0); %Eosinophils 1.2 % (0.0-10.0); %Lymphocytes 10.4 % (21.0-51.0); %Monocytes 12.3 % (0.0-10.0); %Neutrophils 74.8 % (42.0-75.0); Hematocrit 37.1 % (42.0-52.0); Hemoglobin 12.1 g/dL (14.0-18.0); Mean Corpuscular HGB CONC 32.6 g/dL (32.0-36.0); Mean Corpuscular Hemoglobin 30.3 pg (27.0-31.0); Mean Platelet Volume 10.1 fL (7.4-10.4); Platelet Count 184 10x3/uL (130-400); RBC Distribution Width 13.6 % (11.5-14.5); Red Blood Cell (RBC) Count 3.99 mill/uL (4.70-6.10)
[2023-12-15 20:00] LABS: Globulin 3.8 g/dL (2.4-3.5)
[2023-12-15 20:05] LABS: ALT (SGPT) 25 U/L (8-55); AST (SGOT) 25 U/L (5-34); Albumin 2.7 g/dL (3.4-4.8); Alkaline Phosphatase 88 U/L (40-110); Anion Gap 22 mmol/L (10-20); BUN (Urea Nitrogen) 88 mg/dL (8.4-25.7); Bilirubin, Total 0.3 mg/dL (0.2-1.2); Calc. Creatinine Clearance 0 mL/min (70-130); Carbon Dioxide 20 mmol/L (23-31); Chloride 100 mmol/L (98-107); Estimated GFR 6; Glucose 122 mg/dL (83-110); Potassium 3.9 mmol/L (3.5-5.1); Protein, Total 6.5 g/dL (5.8-8.1); Sodium 138 mmol/L (136-145)
[2023-12-15 20:30] LABS: Critical Call Chem Troponin I NUR.NKE @2029; Troponin I 0.211 ng/mL (< 0.028)
[2023-12-15] MEDS ORDERED: Aspirin Chewable 81 MG TAB ONE (20:46)
[2023-12-15] MEDS ORDERED: HYDROcodone/Acetaminophen 5/325 mg Tablet PO PRN (22:08)
[2023-12-15] MEDS ORDERED: Acetaminophen 325 MG TAB PO PRN (22:10)
[2023-12-15] MEDS ORDERED: Dextrose 5% in Water 1,000 ML IV PRN (22:10)
[2023-12-15] MEDS ORDERED: Glucagon 1 MG/ML KIT IM PRN (22:10)
[2023-12-15] MEDS ORDERED: HumaLOG 300 UNITS/3 ML VIAL SC PRN ×2 (22:10)
[2023-12-15] MEDS ORDERED: Ondansetron PF 4 MG/2 ML Vial IVP PRN (22:10)
[2023-12-15] MEDS ORDERED: Dextrose 50% Abboject 50 ML SYRINGE SLOW IVP PRN (22:10)
[2023-12-16 03:52] LABS: #Basophils 0.04 10x3/uL (0.0-0.2); %Basophils 0.6 % (0.0-1.0); %Eosinophils 2.2 % (0.0-10.0); %Lymphocytes 15.2 % (21.0-51.0); %Monocytes 12.7 % (0.0-10.0); %Neutrophils 68.6 % (42.0-75.0); Hematocrit 34.5 % (42.0-52.0); Hemoglobin 11.1 g/dL (14.0-18.0); Mean Corpuscular HGB CONC 32.2 g/dL (32.0-36.0); Mean Corpuscular Hemoglobin 29.8 pg (27.0-31.0); Mean Corpuscular Volume 92.5 fL (78.0-98.0); Mean Platelet Volume 10.8 fL (7.4-10.4); Platelet Count 177 10x3/uL (130-400); RBC Distribution Width 13.7 % (11.5-14.5); Red Blood Cell (RBC) Count 3.73 mill/uL (4.70-6.10)
[2023-12-16 05:02] LABS: BUN (Urea Nitrogen) 86 mg/dL (8.4-25.7); Calc. Creatinine Clearance 9 mL/min (70-130); Calcium 8.7 mg/dL (7.8-10.44); Carbon Dioxide 21 mmol/L (23-31); Estimated GFR 6; Glucose 112 mg/dL (83-110)
[2023-12-16 05:41] LABS: Critical Call Chem Troponin I NUR.LK7@0540; Troponin I 0.218 ng/mL (< 0.028)
[2023-12-16 05:44] LABS: Anion Gap 19 mmol/L (10-20); Chloride 101 mmol/L (98-107); Potassium 3.4 mmol/L (3.5-5.1); Sodium 137 mmol/L (136-145)
[2023-12-16 07:57] LABS: Critical Call Chem Troponin I ERS.JLF1@0756; Troponin I 0.226 ng/mL (< 0.028)
[2023-12-16] MEDS: HumaLOG 300 UNITS/3 ML VIAL SC SCH (11:12)
[2023-12-16 11:13] VITALS: BMI 28.0
[2023-12-16] MEDS: Potassium Chloride 20 MEQ TAB PO SCH ×2 (11:13→12:12)
[2023-12-16] MEDS: Clopidogrel Bisulfate 75 MG TAB PO SCH (12:10)
[2023-12-16] MEDS: Mirabegron ER 25 MG ER.TAB PO SCH (12:10)
[2023-12-16] MEDS: Metoprolol Tartrate 25 MG TAB PO SCH (12:11)
[2023-12-16] MEDS: Aspirin 81 mg Enteric Coated Tablet PO SCH (12:11)
[2023-12-16] MEDS: Ranolazine ER 500 MG TAB PO SCH (12:15)
[2023-12-16] MEDS: Pantoprazole DR 40 MG TAB PO SCH (12:15)
[2023-12-16] MEDS: Heparin 5,000 UNITS/ML VIAL SC SCH (12:16)
[2023-12-16] MEDS: Atorvastatin Calcium 40 MG TAB PO SCH (19:30)
[2023-12-16 19:37] VITALS: BP 139/63; TEMP 97.3
== END 2023-12-16 20:50 | disposition short-term general hospital (02) ==
LOC: ERS 18:48 → ERHOLD 21:32 → 2NO 12-16 10:48
PROVIDERS: ADMIT Internal Medicine; ATTEND Hospitalist
DX: I35.0 Nonrheumatic aortic (valve) stenosis (principal); I42.0 Dilated cardiomyopathy; E11.22 Type 2 diabetes mellitus with diabetic chronic kidney disease; N18.6 End stage renal disease; E11.40 Type 2 diabetes mellitus with diabetic neuropathy, unspecified; R42 Dizziness and giddiness; I95.9 Hypotension, unspecified; E78.5 Hyperlipidemia, unspecified; D63.1 Anemia in chronic kidney disease; E87.6 Hypokalemia; E88.09 Other disorders of plasma-protein metabolism, not elsewhere classified; I25.10 Atherosclerotic heart disease of native coronary artery without angina pectoris; F32.A Depression, unspecified; Z86.73 Personal history of transient ischemic attack (TIA), and cerebral infarction without residual deficits; Z99.2 Dependence on renal dialysis; Z90.49 Acquired absence of other specified parts of digestive tract; Z95.818 Presence of other cardiac implants and grafts; Z79.4 Long term (current) use of insulin; Z79.82 Long term (current) use of aspirin; Z79.899 Other long term (current) drug therapy; Z88.0 Allergy status to penicillin; Z88.8 Allergy status to other drugs, medicaments and biological substances
CPT/HCPCS: 36415; 36416; 71045; 80048; 80053; 84484; 85025; 93005; 96372; G0378; J1644; J1815

== ENCOUNTER 2024-01-03 09:54 | Inpatient (IN) | payer MEDICARE, MEDICAID ==
[2024-01-03 10:35] LABS: #Basophils 0.03 10x3/uL (0.0-0.2); %Basophils 0.3 % (0.0-1.0); %Eosinophils 1.1 % (0.0-10.0); %Monocytes 10.4 % (0.0-10.0); Hematocrit 41.6 % (42.0-52.0); Hemoglobin 13.4 g/dL (14.0-18.0); Mean Corpuscular HGB CONC 32.2 g/dL (32.0-36.0); Mean Corpuscular Hemoglobin 30.1 pg (27.0-31.0); Mean Corpuscular Volume 93.5 fL (78.0-98.0); Mean Platelet Volume 10.5 fL (7.4-10.4); Platelet Count 230 10x3/uL (130-400); RBC Distribution Width 14.6 % (11.5-14.5); Red Blood Cell (RBC) Count 4.45 mill/uL (4.70-6.10)
[2024-01-03 10:58] LABS: ALT (SGPT) 18 U/L (8-55); AST (SGOT) 21 U/L (5-34); Albumin 3.3 g/dL (3.4-4.8); Alkaline Phosphatase 107 U/L (40-110); Anion Gap 20 mmol/L (10-20); BUN (Urea Nitrogen) 78 mg/dL (8.4-25.7); Bilirubin, Total 0.6 mg/dL (0.2-1.2); Calc. Creatinine Clearance 0 mL/min (70-130); Calcium 9.7 mg/dL (7.8-10.44); Carbon Dioxide 25 mmol/L (23-31); Chloride 96 mmol/L (98-107); Estimated GFR 5; Globulin 4.1 g/dL (2.4-3.5); Glucose 184 mg/dL (83-110); Lipase 62 U/L (8-78); Potassium 4.6 mmol/L (3.5-5.1); Protein, Total 7.4 g/dL (5.8-8.1); Sodium 136 mmol/L (136-145)
[2024-01-03] MEDS ORDERED: Morphine 4 MG/ML VIAL ONE (11:26)
[2024-01-03 11:29] LABS: Troponin I 0.379 ng/mL (< 0.028)
[2024-01-03 14:25] LABS: RBC Count-Automated (BF) 0 /cu.mm; WBC/Nucleated-Auto (BF) 157 /cu.mm
[2024-01-03 14:30] LABS: BF Color Yellow; Body Fluid Source Ascites Body Fluid; Clarity Clear (Clear); Tube # EDTA
[2024-01-03 14:55] LABS: BF Segmented Neutrophils 62 %; Cell Count Non Hematic 6 %; Lymphocytes 32 %
[2024-01-03] MEDS ORDERED: Cefepime 2 GM VIAL ONE (15:45)
[2024-01-03] MEDS ORDERED: Acetaminophen 325 MG TAB PO PRN ×2 (15:45→16:32)
[2024-01-03] MEDS ORDERED: Ondansetron ODT 4 MG TAB SL PRN (15:45)
[2024-01-03] MEDS ORDERED: Sodium Chloride 0.9% 100 ML ONE (15:45)
[2024-01-03 16:24] LABS: Bacteria/HPF None Seen HPF (None Seen); Bilirubin Negative (Negative); Blood, Urine 1+ (Negative); CAUTI Indications for Culture Dysuria,urgency,freq; Clarity Clear (Clear); Glucose, Urine (Dipstick) 200 mg/dL (Negative); Ketone, Urine Negative (Negative); Leukocyte Negative Leu/uL (Negative); Nitrite Negative (Negative); Protein, Urine (Dipstick) 300 mg/dL (Neg-Trace); RBC/HPF 0-3 HPF (0-3); Specific Gravity, Urine 1.026 (1.002-1.036); Squamous Epithelial 0-3 HPF (0-3); Urobilinogen Normal mg/dL (Less than 2)
[2024-01-03] MEDS ORDERED: Ondansetron ODT 4 MG TAB PO PRN (16:32)
[2024-01-03 16:34] LABS: Critical Call Chem Troponin I RESULT DECREASING; Troponin I 0.346 ng/mL (< 0.028)
[2024-01-03 17:14] LABS: Urine Culture Reflex No No
[2024-01-03 17:30] VITALS: BMI 25.9
[2024-01-03] MEDS ORDERED: Vancomycin Dose by Levels Sliding Scale (Wt 71-99) FS SCH (17:45)
[2024-01-03] MEDS: Vancomycin (BATCH) 1.5 GM in Premix 1 BAG IVPB SCH (18:25)
[2024-01-03 19:32] LABS: Critical Call Chem Troponin I NUR.TM8@1932; Troponin I 0.404 ng/mL (< 0.028)
[2024-01-03] MEDS ORDERED: Vancomycin 1 GM in Sodium Chloride 0.9% 250 ML 250 ML IVPB SCH (21:00)
[2024-01-03] MEDS: Famotidine 20 MG TAB PO SCH (21:15)
[2024-01-04] MEDS: Ondansetron PF 4 MG/2 ML Vial IVP PRN (03:11)
[2024-01-04 04:04] LABS: #Basophils 0.05 10x3/uL (0.0-0.2); %Basophils 0.6 % (0.0-1.0); %Eosinophils 1.2 % (0.0-10.0); %Lymphocytes 6.6 % (21.0-51.0); %Monocytes 11.8 % (0.0-10.0); %Neutrophils 78.6 % (42.0-75.0); Hemoglobin 13.1 g/dL (14.0-18.0); Mean Corpuscular Hemoglobin 30.6 pg (27.0-31.0); Mean Corpuscular Volume 95.8 fL (78.0-98.0); Mean Platelet Volume 10.5 fL (7.4-10.4); Platelet Count 208 10x3/uL (130-400); RBC Distribution Width 14.7 % (11.5-14.5); Red Blood Cell (RBC) Count 4.28 mill/uL (4.70-6.10)
[2024-01-04 04:27] LABS: Anion Gap 21 mmol/L (10-20); BUN (Urea Nitrogen) 78 mg/dL (8.4-25.7); Calc. Creatinine Clearance 6 mL/min (70-130); Calcium 9.6 mg/dL (7.8-10.44); Carbon Dioxide 19 mmol/L (23-31); Chloride 96 mmol/L (98-107); Estimated GFR 5; Glucose 289 mg/dL (83-110); Potassium 4.6 mmol/L (3.5-5.1); Sodium 131 mmol/L (136-145)
[2024-01-04] MEDS ORDERED: Meclizine HCl 12.5 MG TAB PO PRN (14:02)
[2024-01-04] MEDS ORDERED: Dextrose 5% in Water 1,000 ML IV PRN (14:06)
[2024-01-04] MEDS ORDERED: Glucagon 1 MG/ML KIT IM PRN (14:06)
[2024-01-04] MEDS ORDERED: Dextrose 50% Abboject 50 ML SYRINGE SLOW IVP PRN (14:06)
[2024-01-04] MEDS: Insulin Glargine 30 UNITS/0.3 ML VIAL SC SCH (16:59)
[2024-01-04] MEDS: Cefepime 1 GM in Sodium Chloride 0.9% 100 ML IVPB SCH (17:00)
[2024-01-04] MEDS: HumaLOG 300 UNITS/3 ML VIAL SC PRN (18:36)
[2024-01-04] MEDS: Cholecalciferol 1,000 UNITS (25 MCG) TAB PO SCH (20:44)
[2024-01-04] MEDS: Ranolazine ER 500 MG TAB PO SCH (20:45)
[2024-01-04] MEDS: Atorvastatin Calcium 40 MG TAB PO SCH (20:45)
[2024-01-04] MEDS: Metoprolol Tartrate 25 MG TAB PO SCH (20:45)
[2024-01-04] MEDS ORDERED: Non-Formulary Item 1 EACH (Midodrine Hcl [Proamatine] 2.5 MG Tab) PO SCH (21:00)
[2024-01-05 04:34] LABS: #Basophils 0.04 10x3/uL (0.0-0.2); %Basophils 0.5 % (0.0-1.0); %Eosinophils 2.5 % (0.0-10.0); %Lymphocytes 5.2 % (21.0-51.0); %Monocytes 13.7 % (0.0-10.0); %Neutrophils 77.1 % (42.0-75.0); Hematocrit 36.6 % (42.0-52.0); Hemoglobin 11.6 g/dL (14.0-18.0); Mean Corpuscular HGB CONC 31.7 g/dL (32.0-36.0); Mean Corpuscular Hemoglobin 30.3 pg (27.0-31.0); Mean Corpuscular Volume 95.6 fL (78.0-98.0); Mean Platelet Volume 10.5 fL (7.4-10.4); Platelet Count 166 10x3/uL (130-400); RBC Distribution Width 14.6 % (11.5-14.5); Red Blood Cell (RBC) Count 3.83 mill/uL (4.70-6.10)
[2024-01-05 04:47] LABS: Anion Gap 21 mmol/L (10-20); BUN (Urea Nitrogen) 83 mg/dL (8.4-25.7); Calc. Creatinine Clearance 6 mL/min (70-130); Calcium 9.1 mg/dL (7.8-10.44); Carbon Dioxide 20 mmol/L (23-31); Chloride 98 mmol/L (98-107); Estimated GFR 5; Glucose 131 mg/dL (83-110); Potassium 4.1 mmol/L (3.5-5.1); Sodium 135 mmol/L (136-145)
[2024-01-05] MEDS: Mirabegron ER 25 MG ER.TAB PO SCH (08:46)
[2024-01-05] MEDS: Aspirin 81 mg Enteric Coated Tablet PO SCH (08:46)
[2024-01-05] MEDS: Calcitriol 0.25 MCG CAP PO SCH (08:46)
[2024-01-05] MEDS: traZODone HCl 50 MG TAB PO SCH (08:46)
[2024-01-05] MEDS: Pantoprazole DR 40 MG TAB PO SCH (08:46)
[2024-01-05] MEDS: FERROUS FUM PO SCH (08:47)
[2024-01-05] MEDS: FOLIC ACID PO SCH (08:47)
[2024-01-05] MEDS: Escitalopram Oxalate 10 mg Tablet PO SCH (08:47)
[2024-01-05] MEDS: Clopidogrel Bisulfate 75 MG TAB PO SCH (08:47)
[2024-01-05] MEDS: [UNRECOGNIZED DRUG - OTHER] PO SCH (08:47)
[2024-01-05] MEDS: Insulin Glargine 30 UNITS/0.3 ML VIAL SC SCH (08:51)
[2024-01-05 09:38] LABS: Vancomycin, Trough 18.6 ug/mL
[2024-01-05] MEDS: Vancomycin HCl 500 MG in Sodium Chloride 0.9% 100 ML IV SCH (14:43)
[2024-01-05] MEDS: HumaLOG 300 UNITS/3 ML VIAL SC PRN (21:10)
[2024-01-05] MEDS: Melatonin 3 MG TAB PO PRN (23:30)
[2024-01-06] MEDS: Acetaminophen 500 MG TAB PO PRN (02:07)
[2024-01-06 06:00] LABS: #Basophils 0.04 10x3/uL (0.0-0.2); %Basophils 0.5 % (0.0-1.0); %Lymphocytes 6.5 % (21.0-51.0); %Monocytes 13.2 % (0.0-10.0); %Neutrophils 76.9 % (42.0-75.0); Hematocrit 31.8 % (42.0-52.0); Hemoglobin 10.3 g/dL (14.0-18.0); Mean Corpuscular HGB CONC 32.4 g/dL (32.0-36.0); Mean Corpuscular Hemoglobin 30.2 pg (27.0-31.0); Mean Corpuscular Volume 93.3 fL (78.0-98.0); Mean Platelet Volume 10.5 fL (7.4-10.4); Platelet Count 150 10x3/uL (130-400); RBC Distribution Width 14.2 % (11.5-14.5); Red Blood Cell (RBC) Count 3.41 mill/uL (4.70-6.10)
[2024-01-06 06:14] LABS: Anion Gap 21 mmol/L (10-20); BUN (Urea Nitrogen) 87 mg/dL (8.4-25.7); Calc. Creatinine Clearance 6 mL/min (70-130); Calcium 8.6 mg/dL (7.8-10.44); Carbon Dioxide 20 mmol/L (23-31); Chloride 97 mmol/L (98-107); Estimated GFR 4; Glucose 111 mg/dL (83-110); Potassium 4.3 mmol/L (3.5-5.1); Sodium 134 mmol/L (136-145)
[2024-01-06 08:09] VITALS: TEMP 98.5
[2024-01-06 12:05] VITALS: BP 125/60
[2024-01-06] MEDS ORDERED: Polyethylene Glycol 3350 17 GM Packet PO SCH (14:45)
[2024-01-06] MEDS ORDERED: Glycerin Adult Supp. (24 ct jar) PR SCH (14:45)
[2024-01-11] MEDS ORDERED: (Semaglutide [Ozempic] 1 MG/0.75 ML Pen.Injctr) SC SCH (09:00)
== END 2024-01-06 16:59 | disposition home or self-care (01) | DRG 919 ==
LOC: ERS 09:54 → 2SW 15:31 → OBSVTOIN 01-06 14:02
PROVIDERS: ADMIT Internal Medicine; ATTEND Hospitalist
DX: T85.71XA Infection and inflammatory reaction due to peritoneal dialysis catheter, initial encounter (principal); N18.6 End stage renal disease; I5A Non-ischemic myocardial injury (non-traumatic); I50.22 Chronic systolic (congestive) heart failure; I13.2 Hypertensive heart and chronic kidney disease with heart failure and with stage 5 chronic kidney disease, or end stage renal disease; D63.1 Anemia in chronic kidney disease; Z88.0 Allergy status to penicillin; Z88.8 Allergy status to other drugs, medicaments and biological substances; I25.10 Atherosclerotic heart disease of native coronary artery without angina pectoris; I25.2 Old myocardial infarction; E11.22 Type 2 diabetes mellitus with diabetic chronic kidney disease; Z90.49 Acquired absence of other specified parts of digestive tract; F41.9 Anxiety disorder, unspecified; F32.A Depression, unspecified; E88.09 Other disorders of plasma-protein metabolism, not elsewhere classified; Z99.2 Dependence on renal dialysis
CPT/HCPCS: 36415; 36416; 74177; 80048; 80053; 80202; 81001; 82945; 83690; 84484; 85025; 85060; 87070; 87205; 89051; 93005; J0692; J1815; J2270; J2405; J3370; J3490

== ENCOUNTER 2024-01-19 20:50 | Inpatient (IN) | payer MEDICARE, MEDICAID ==
[2024-01-19 23:25] LABS: #Basophils Less than 0.03 10x3/uL (0.0-0.2); %Basophils 0.2 % (0.0-1.0); %Eosinophils 2.1 % (0.0-10.0); %Lymphocytes 5.3 % (21.0-51.0); %Monocytes 11.7 % (0.0-10.0); %Neutrophils 78.7 % (42.0-75.0); Hematocrit 32.4 % (42.0-52.0); Hemoglobin 10.3 g/dL (14.0-18.0); Mean Corpuscular HGB CONC 31.8 g/dL (32.0-36.0); Mean Corpuscular Volume 97.6 fL (78.0-98.0); Mean Platelet Volume 12.3 fL (7.4-10.4); Platelet Count 105 10x3/uL (130-400); RBC Distribution Width 15.5 % (11.5-14.5); Red Blood Cell (RBC) Count 3.32 mill/uL (4.70-6.10)
[2024-01-19 23:31] LABS: ALT (SGPT) 1278 U/L (8-55); AST (SGOT) 270 U/L (5-34); Albumin 2.3 g/dL (3.4-4.8); Alkaline Phosphatase 206 U/L (40-110); Anion Gap 23 mmol/L (10-20); BUN (Urea Nitrogen) 85 mg/dL (8.4-25.7); Bilirubin, Total 0.8 mg/dL (0.2-1.2); Calc. Creatinine Clearance 0 mL/min (70-130); Calcium 8.9 mg/dL (7.8-10.44); Carbon Dioxide 22 mmol/L (23-31); Chloride 90 mmol/L (98-107); Estimated GFR 6; Globulin 3.5 g/dL (2.4-3.5); Glucose 129 mg/dL (83-110); Magnesium 2.4 mg/dL (1.6-2.6); Potassium 5.6 mmol/L (3.5-5.1); Protein, Total 5.8 g/dL (5.8-8.1); Sodium 129 mmol/L (136-145)
[2024-01-19 23:41] LABS: Bilirubin Negative (Negative); Blood, Urine 1+ (Negative); CAUTI Indications for Culture Dysuria,urgency,freq; Clarity Turbid (Clear); Glucose, Urine (Dipstick) Normal (Negative); Ketone, Urine Negative (Negative); Leukocyte 500 Leu/uL (Negative); Nitrite Negative (Negative); Protein, Urine (Dipstick) 200 mg/dL (Neg-Trace); Squamous Epithelial 0-3 HPF (0-3); Urobilinogen Normal mg/dL (Less than 2); WBC/HPF Greater than 50 HPF (0-3); pH, Urine 5.5 (5.0-9.0)
[2024-01-19 23:42] LABS: Bacteria/HPF 1+ HPF (None Seen); Sperm/HPF Rare HPF (None Seen); Urine Culture Reflex Yes Yes
[2024-01-20] MEDS ORDERED: cefTRIAXone (ROCEPHIN) 2 GM VIAL ONE (01:07)
[2024-01-20] MEDS ORDERED: Sodium Chloride 0.9% 100 ML ONE (01:08)
[2024-01-20] MEDS ORDERED: fentaNYL 50 mcg/mL 1 mL Vial ONE (01:14)
[2024-01-20] MEDS ORDERED: Acetaminophen 650 MG Suppository PR PRN (01:24)
[2024-01-20] MEDS ORDERED: Ondansetron ODT 4 MG TAB PO PRN (01:24)
[2024-01-20] MEDS ORDERED: Dextrose 5% in Water 1,000 ML IV PRN (01:24)
[2024-01-20] MEDS ORDERED: Glucagon 1 MG/ML KIT IM PRN (01:24)
[2024-01-20] MEDS ORDERED: Dextrose 50% Abboject 50 ML SYRINGE SLOW IVP PRN (01:24)
[2024-01-20] MEDS ORDERED: Sodium Polystyrene Sulfonate 15 GM (60 mL) BOT PO SCH (02:15)
[2024-01-20 03:06] LABS: Lactic Acid 2.2 mmol/L (0.5-2.2)
[2024-01-20 03:08] LABS: #Basophils 0.03 10x3/uL (0.0-0.2); %Basophils 0.2 % (0.0-1.0); %Eosinophils 1.9 % (0.0-10.0); %Lymphocytes 5.2 % (21.0-51.0); %Monocytes 12.6 % (0.0-10.0); %Neutrophils 78.3 % (42.0-75.0); Hematocrit 32.3 % (42.0-52.0); Hemoglobin 10.2 g/dL (14.0-18.0); Mean Corpuscular HGB CONC 31.6 g/dL (32.0-36.0); Mean Corpuscular Hemoglobin 30.6 pg (27.0-31.0); Mean Platelet Volume 12.4 fL (7.4-10.4); Platelet Count 107 10x3/uL (130-400); RBC Distribution Width 15.5 % (11.5-14.5); Red Blood Cell (RBC) Count 3.33 mill/uL (4.70-6.10)
[2024-01-20 03:09] LABS: Anion Gap 21 mmol/L (10-20); BUN (Urea Nitrogen) 87 mg/dL (8.4-25.7); Calc. Creatinine Clearance 0 mL/min (70-130); Calcium 8.8 mg/dL (7.8-10.44); Carbon Dioxide 22 mmol/L (23-31); Chloride 89 mmol/L (98-107); Estimated GFR 6; Glucose 97 mg/dL (83-110); Sodium 126 mmol/L (136-145)
[2024-01-20] MEDS ORDERED: Calcium Chloride 1 GM/10 ML Abboject SYRINGE ONE (03:20)
[2024-01-20] MEDS ORDERED: Albuterol 2.5 MG (0.5 mL) NEB ONE (03:21)
[2024-01-20] MEDS ORDERED: Insulin Regular, Human 100 UNIT/ML 10 ML VIAL ONE (03:24)
[2024-01-20 03:47] LABS: Critical Call Chem Troponin I NUR.SH13 @0345; Troponin I 0.225 ng/mL (< 0.028)
[2024-01-20 04:33] LABS: Anion Gap 23 mmol/L (10-20); BUN (Urea Nitrogen) 89 mg/dL (8.4-25.7); Calc. Creatinine Clearance 0 mL/min (70-130); Calcium 8.8 mg/dL (7.8-10.44); Carbon Dioxide 21 mmol/L (23-31); Chloride 89 mmol/L (98-107); Estimated GFR 6; Glucose 97 mg/dL (83-110); Potassium 5.9 mmol/L (3.5-5.1); Sodium 127 mmol/L (136-145)
[2024-01-20] MEDS: Sodium Bicarb 50 MEQ/50 ML Abboject 8.4% SYRINGE IVP SCH (05:12)
[2024-01-20] MEDS: Midodrine HCl 5 MG TAB PO SCH (05:12)
[2024-01-20] MEDS: Calcium Chloride 1 GM/10 ML Abboject SYRINGE IVP SCH (05:12)
[2024-01-20] MEDS: LOKELMA 10 GM PACKET PO SCH (05:12)
[2024-01-20] MEDS: Insulin Regular, Human 100 UNIT/ML 10 ML VIAL IVP SCH (05:12)
[2024-01-20] MEDS: Albuterol 2.5 MG (3 mL) NEB NEB SCH (05:13)
[2024-01-20 07:49] LABS: HBsAg Index 0.51 S/CO (0-0.99); Hep B Core Total Ab NONREACTIVE (NonReactive); Hep B Surf Ag NONREACTIVE S/CO (NonReactive)
[2024-01-20 08:06] LABS: HBSAB Concentration 19.78 mIU/mL; Hep B Surf AB REACTIVE (NonReactive); Hep C IgG Ab NONREACTIVE S/CO (NonReactive); Hep C Index 0.19 S/CO (0-0.79)
[2024-01-20] MEDS ORDERED: Iopamidol 0 ML ONE (09:02)
[2024-01-20 09:39] LABS: Anion Gap 23 mmol/L (10-20); BUN (Urea Nitrogen) 91 mg/dL (8.4-25.7); Calc. Creatinine Clearance 8 mL/min (70-130); Calcium 8.8 mg/dL (7.8-10.44); Carbon Dioxide 22 mmol/L (23-31); Chloride 88 mmol/L (98-107); Estimated GFR 6; Glucose 70 mg/dL (83-110); Potassium 6.5 mmol/L (3.5-5.1); Sodium 126 mmol/L (136-145)
[2024-01-20] MEDS: Cefepime 2 GM in Sodium Chloride 0.9% 100 ML IVPB SCH (10:00)
[2024-01-20 10:38] LABS: Actual Bicarbonate (HCO3v) 22.1 mEq/L (22-28); Base Excess -2.5 mEq/L (-2.0 to +3.0); Calcium, Ionized (venous) 1.02 mmol/L (1.16-1.32); Chloride (VBG) 92 mmol/L (98-106); Hematocrit-VBG 31 % (42.0-52.0); Hemoglobin (Hb) 10.5 g/dL (12.6-17.4); Potassium (VBG) 6.21 mmol/L (3.70-5.30); Sodium 123 mmol/L (133-146); pH (venous) 7.389 (7.32-7.43)
[2024-01-20] MEDS: Ranolazine ER 500 MG TAB PO SCH (11:50)
[2024-01-20] MEDS: Aspirin 81 mg Enteric Coated Tablet PO SCH (11:50)
[2024-01-20] MEDS: Clopidogrel Bisulfate 75 MG TAB PO SCH (11:50)
[2024-01-20] MEDS: Calcium Gluc 4.6 MEQ/10 ML (100 MG/ML) SLOW IVP SCH (12:13)
[2024-01-20] MEDS: ALPRAZolam 0.25 MG TAB PO SCH (15:59)
[2024-01-20] MEDS: Atorvastatin Calcium 40 MG TAB PO SCH (20:53)
[2024-01-20] MEDS ORDERED: cefTRIAXone\\ROCEPHIN 1 GM in Sodium Chloride 0.9% 100 ML IVPB SCH (21:00)
[2024-01-21] MEDS: traZODone HCl 50 MG TAB PO SCH ×2 (00:31→21:53)
[2024-01-21 08:54] LABS: Anion Gap 19 mmol/L (10-20); BUN (Urea Nitrogen) 73 mg/dL (8.4-25.7); Calc. Creatinine Clearance 10 mL/min (70-130); Calcium 8.6 mg/dL (7.8-10.44); Carbon Dioxide 25 mmol/L (23-31); Chloride 90 mmol/L (98-107); Estimated GFR 7; Glucose 133 mg/dL (83-110); Potassium 5.4 mmol/L (3.5-5.1); Sodium 129 mmol/L (136-145)
[2024-01-21 09:03] LABS: #Basophils Less than 0.03 10x3/uL (0.0-0.2); %Basophils 0.2 % (0.0-1.0); %Eosinophils 1.6 % (0.0-10.0); %Lymphocytes 4.8 % (21.0-51.0); %Monocytes 11.6 % (0.0-10.0); %Neutrophils 79.5 % (42.0-75.0); Hematocrit 31.7 % (42.0-52.0); Hemoglobin 10.1 g/dL (14.0-18.0); Mean Corpuscular HGB CONC 31.9 g/dL (32.0-36.0); Mean Corpuscular Hemoglobin 31.1 pg (27.0-31.0); Mean Corpuscular Volume 97.5 fL (78.0-98.0); Mean Platelet Volume 12.2 fL (7.4-10.4); Platelet Count 121 10x3/uL (130-400); RBC Distribution Width 16.5 % (11.5-14.5); Red Blood Cell (RBC) Count 3.25 mill/uL (4.70-6.10)
[2024-01-21] MEDS: QUEtiapine 25 MG TAB PO SCH (22:35)
[2024-01-22 04:15] LABS: Anion Gap 13 mmol/L (10-20); BUN (Urea Nitrogen) 36 mg/dL (8.4-25.7); Calc. Creatinine Clearance 16 mL/min (70-130); Calcium 8.4 mg/dL (7.8-10.44); Carbon Dioxide 26 mmol/L (23-31); Chloride 98 mmol/L (98-107); Estimated GFR 13; Glucose 215 mg/dL (83-110); Potassium 4.3 mmol/L (3.5-5.1); Sodium 133 mmol/L (136-145)
[2024-01-22] MEDS: Cefepime 1 GM in Sodium Chloride 0.9% 100 ML IVPB SCH (15:46)
[2024-01-22] MEDS: HumaLOG 300 UNITS/3 ML VIAL SC PRN ×2 (17:25→20:54)
[2024-01-22] MEDS: QUEtiapine 25 MG TAB PO SCH (20:53)
[2024-01-23] MEDS: ALPRAZolam 0.25 MG TAB PO PRN (00:51)
[2024-01-23] MEDS: HumaLOG 300 UNITS/3 ML VIAL SC PRN (05:21)
[2024-01-23 05:30] VITALS: BMI 48.5
[2024-01-23] MEDS ORDERED: Bisacodyl 10 MG SUPP PR PRN (09:27)
[2024-01-23] MEDS: Polyethylene Glycol 3350 17 GM Packet PO PRN (11:28)
[2024-01-23] MEDS ORDERED: Docusate 100 MG CAP PO SCH (21:00)
[2024-01-23] MEDS: Docusate 100 MG CAP PO SCH (22:26)
[2024-01-24] MEDS: Insulin Glargine 30 UNITS/0.3 ML VIAL SC SCH (10:13)
[2024-01-24 10:53] LABS: ALT (SGPT) 348 U/L (8-55); AST (SGOT) 58 U/L (5-34); Albumin 1.9 g/dL (3.4-4.8); Alkaline Phosphatase 199 U/L (40-110); Anion Gap 16 mmol/L (10-20); BUN (Urea Nitrogen) 51 mg/dL (8.4-25.7); Calc. Creatinine Clearance 12 mL/min (70-130); Calcium 8.2 mg/dL (7.8-10.44); Carbon Dioxide 27 mmol/L (23-31); Chloride 95 mmol/L (98-107); Estimated GFR 9; Globulin 3.5 g/dL (2.4-3.5); Glucose 371 mg/dL (83-110); Protein, Total 5.4 g/dL (5.8-8.1); Sodium 134 mmol/L (136-145)
[2024-01-24] MEDS: Acetaminophen 325 MG TAB PO PRN (14:58)
[2024-01-24] MEDS: Fosfomycin 3 GM/Packet PO SCH ×2 (19:57→20:48)
[2024-01-25] MEDS ORDERED: Dextrose 5% in Water 1,000 ML IV PRN (08:51)
[2024-01-25] MEDS ORDERED: Insulin Glargine 30 UNITS/0.3 ML VIAL SC SCH (09:00)
[2024-01-25] MEDS: Insulin Glargine 30 UNITS/0.3 ML VIAL SC SCH (09:15)
[2024-01-25 09:55] LABS: Anion Gap 15 mmol/L (10-20); BUN (Urea Nitrogen) 53 mg/dL (8.4-25.7); Calc. Creatinine Clearance 11 mL/min (70-130); Calcium 8.1 mg/dL (7.8-10.44); Carbon Dioxide 26 mmol/L (23-31); Chloride 97 mmol/L (98-107); Estimated GFR 9; Glucose 359 mg/dL (83-110); Potassium 3.8 mmol/L (3.5-5.1); Sodium 134 mmol/L (136-145)
[2024-01-25] MEDS: HumaLOG 300 UNITS/3 ML VIAL SC PRN (11:55)
[2024-01-26] MEDS: Acetaminophen 325 MG TAB PO PRN (03:19)
[2024-01-26 06:22] LABS: Anion Gap 17 mmol/L (10-20); BUN (Urea Nitrogen) 42 mg/dL (8.4-25.7); Calc. Creatinine Clearance 15 mL/min (70-130); Calcium 8.1 mg/dL (7.8-10.44); Carbon Dioxide 22 mmol/L (23-31); Chloride 101 mmol/L (98-107); Estimated GFR 12; Glucose 169 mg/dL (83-110); Potassium 3.9 mmol/L (3.5-5.1); Sodium 136 mmol/L (136-145)
[2024-01-26] MEDS: Atorvastatin Calcium 40 MG TAB PO SCH (21:17)
[2024-01-26] MEDS: Ranolazine ER 500 MG TAB PO SCH (21:17)
[2024-01-26] MEDS: Morphine 2 MG/ML VIAL SLOW IVP SCH (22:36)
[2024-01-27] MEDS: traZODone HCl 50 MG TAB PO SCH (00:02)
[2024-01-27] MEDS ORDERED: Heparin 10,000 UNITS/ 10 ML VIAL ONE (08:58)
[2024-01-27 14:43] VITALS: BMI 28.0
[2024-01-28 06:01] LABS: Hematocrit 31.5 % (42.0-52.0); Hemoglobin 9.5 g/dL (14.0-18.0); Mean Corpuscular HGB CONC 30.2 g/dL (32.0-36.0); Mean Corpuscular Hemoglobin 30.2 pg (27.0-31.0); Mean Platelet Volume 10.7 fL (7.4-10.4); Platelet Count 169 10x3/uL (130-400); Red Blood Cell (RBC) Count 3.15 mill/uL (4.70-6.10)
[2024-01-28 06:41] LABS: Eosinophils 1 % (0-10); Hypochromia SLIGHT = 6-15 cells HPF (0-5); Lymphocytes 8 % (21-51); Macrocytosis SLIGHT = 6-15 cells HPF (0-5); Monocytes 6 % (0-10); Myelocyte 1 % (0-0); Neutrophil 82 % (42-75); Platelet Adequacy Comment Platelets Normal; Polychromasia SLIGHT = 2-3 cells HPF (0-2)
[2024-01-28 06:45] LABS: Anion Gap 16 mmol/L (10-20); BUN (Urea Nitrogen) 31 mg/dL (8.4-25.7); Calc. Creatinine Clearance 18 mL/min (70-130); Calcium 8.4 mg/dL (7.8-10.44); Carbon Dioxide 25 mmol/L (23-31); Chloride 98 mmol/L (98-107); Estimated GFR 15; Glucose 90 mg/dL (83-110); Potassium 3.8 mmol/L (3.5-5.1); Sodium 135 mmol/L (136-145)
[2024-01-28] MEDS: Aspirin 81 mg Enteric Coated Tablet PO SCH (08:46)
[2024-01-28] MEDS: Clopidogrel Bisulfate 75 MG TAB PO SCH (08:46)
[2024-01-28] MEDS: Midodrine HCl 5 MG TAB PO SCH (08:57)
[2024-01-28] MEDS ORDERED: traZODone HCl 50 MG TAB PO PRN (12:51)
[2024-01-28] MEDS: diphenhydrAMINE 25 MG CAP PO SCH (19:34)
[2024-01-29] MEDS ORDERED: Heparin 10,000 UNITS/ 10 ML VIAL ONE (08:52)
[2024-01-29] MEDS: Ondansetron PF 4 MG/2 ML Vial IVP PRN (17:56)
[2024-01-29] MEDS: Ondansetron PF 4 MG/2 ML Vial ONE (18:36)
[2024-01-30] MEDS ORDERED: Morphine 2 MG/ML VIAL SLOW IVP PRN (01:00)
[2024-01-30] MEDS: traMADol HCl 50 MG TAB PO SCH (01:57)
[2024-01-30] MEDS: Lidocaine 4% Patch TD SCH (01:58)
[2024-01-30 07:28] VITALS: TEMP 98.1
[2024-01-30] MEDS: Transdermal Patch Removal TOP SCH (12:19)
[2024-01-30 14:54] VITALS: BP 123/74
== END 2024-01-30 15:18 | DRG 871 ==
LOC: ERS 20:50 → IMCU/EMU 01-20 02:06 → MERGE 01-20 02:06 → T4-B 01-25 10:52
PROVIDERS: ADMIT Student in an Organized Health Care Education/Training Program; ATTEND Internal Medicine
DX: A41.9 Sepsis, unspecified organism (principal); G93.41 Metabolic encephalopathy; N18.6 End stage renal disease; K72.00 Acute and subacute hepatic failure without coma; I12.0 Hypertensive chronic kidney disease with stage 5 chronic kidney disease or end stage renal disease; I50.42 Chronic combined systolic (congestive) and diastolic (congestive) heart failure; N20.1 Calculus of ureter; N39.0 Urinary tract infection, site not specified; E87.20 Acidosis, unspecified; I42.0 Dilated cardiomyopathy; Z66 Do not resuscitate; R65.20 Severe sepsis without septic shock; E11.9 Type 2 diabetes mellitus without complications; E11.42 Type 2 diabetes mellitus with diabetic polyneuropathy; D63.1 Anemia in chronic kidney disease; I48.91 Unspecified atrial fibrillation; F41.9 Anxiety disorder, unspecified; E78.5 Hyperlipidemia, unspecified; I25.10 Atherosclerotic heart disease of native coronary artery without angina pectoris; E87.5 Hyperkalemia; E11.22 Type 2 diabetes mellitus with diabetic chronic kidney disease; I35.0 Nonrheumatic aortic (valve) stenosis; K59.00 Constipation, unspecified; K72.10 Chronic hepatic failure without coma; R94.31 Abnormal electrocardiogram [ECG] [EKG]; N40.0 Benign prostatic hyperplasia without lower urinary tract symptoms; I44.7 Left bundle-branch block, unspecified; Z79.02 Long term (current) use of antithrombotics/antiplatelets; Z88.0 Allergy status to penicillin; Z79.899 Other long term (current) drug therapy
CPT/HCPCS: 36415; 36416; 74176; 80048; 80053; 81001; 82140; 82805; 83605; 83735; 83880; 84484; 85025; 86704; 86706; 86803; 87040; 87086; 87340; 93005; 93010; 93306; 96365; 96375; J0612; J0692; J0696; J1644; J1815; J2272; J2405; J3010; J3490; J7611; Q9967

== ENCOUNTER 2024-02-07 13:52 | Inpatient (IN) | payer MEDICARE, MEDICAID ==
[2024-02-07] MEDS ORDERED: Cefepime 2 GM VIAL ONE (14:18)
[2024-02-07] MEDS ORDERED: Vancomycin 1 GM/200 ML (FROZEN) BAG ONE (14:19)
[2024-02-07 14:47] LABS: #Basophils 0.03 10x3/uL (0.0-0.2); %Basophils 0.6 % (0.0-1.0); %Eosinophils 1.4 % (0.0-10.0); %Lymphocytes 8.4 % (21.0-51.0); %Monocytes 16.2 % (0.0-10.0); Hematocrit 32.1 % (42.0-52.0); Mean Corpuscular HGB CONC 31.2 g/dL (32.0-36.0); Mean Corpuscular Hemoglobin 29.9 pg (27.0-31.0); Mean Corpuscular Volume 96.1 fL (78.0-98.0); Platelet Count 189 10x3/uL (130-400); RBC Distribution Width 16.4 % (11.5-14.5); Red Blood Cell (RBC) Count 3.34 mill/uL (4.70-6.10)
[2024-02-07 15:03] LABS: Phosphorus 6.8 mg/dL (2.3-4.7)
[2024-02-07 15:08] LABS: ALT (SGPT) 38 U/L (8-55); AST (SGOT) 42 U/L (5-34); Albumin 2.5 g/dL (3.4-4.8); Alkaline Phosphatase 142 U/L (40-110); Anion Gap 14 mmol/L (10-20); BUN (Urea Nitrogen) 47 mg/dL (8.4-25.7); Bilirubin, Total 0.6 mg/dL (0.2-1.2); Calc. Creatinine Clearance 0 mL/min (70-130); Carbon Dioxide 26 mmol/L (23-31); Chloride 96 mmol/L (98-107); Estimated GFR 10; Globulin 3.7 g/dL (2.4-3.5); Glucose 270 mg/dL (83-110); Magnesium 1.8 mg/dL (1.6-2.6); Potassium 3.5 mmol/L (3.5-5.1); Protein, Total 6.2 g/dL (5.8-8.1); Sodium 132 mmol/L (136-145)
[2024-02-07 15:22] LABS: Bacteria/HPF None Seen HPF (None Seen); Bilirubin Negative (Negative); Blood, Urine 2+ (Negative); CAUTI Indications for Culture Dysuria,urgency,freq; Clarity Clear (Clear); Glucose, Urine (Dipstick) Greater than 1000 mg/dL (Negative); Ketone, Urine Negative (Negative); Leukocyte Negative Leu/uL (Negative); Nitrite Negative (Negative); Protein, Urine (Dipstick) 300 mg/dL (Neg-Trace); RBC/HPF 0-3 HPF (0-3); Specific Gravity, Urine 1.014 (1.002-1.036); Squamous Epithelial None Seen HPF (0-3); Urobilinogen Normal mg/dL (Less than 2)
[2024-02-07 16:14] LABS: Urine Culture Reflex No No
[2024-02-07] MEDS ORDERED: Dextrose 5% in Water 1,000 ML IV PRN (18:48)
[2024-02-07] MEDS ORDERED: Dextrose 50% Abboject 50 ML SYRINGE SLOW IVP PRN (18:48)
[2024-02-07] MEDS ORDERED: Glucagon 1 MG/ML KIT IM PRN (18:48)
[2024-02-07 20:35] VITALS: BMI 30.2
[2024-02-07] MEDS ORDERED: Vancomycin Diaylsis Sliding Scale (Wt 71-99) FS SCH (22:30)
[2024-02-08] MEDS: Tamsulosin HCl 0.4 MG CAP PO SCH ×2 (01:20→05:15)
[2024-02-08] MEDS: Atorvastatin Calcium 40 MG TAB PO SCH (01:20)
[2024-02-08] MEDS: Heparin 5,000 UNITS/ML VIAL SC SCH (01:20)
[2024-02-08] MEDS: Midodrine HCl 5 MG TAB PO SCH (01:21)
[2024-02-08] MEDS: Ranolazine ER 500 MG TAB PO SCH (01:21)
[2024-02-08] MEDS: Vancomycin HCl 750 MG in Sodium Chloride 0.9% 250 ML 250 ML IVPB SCH ×2 (01:30→17:18)
[2024-02-08] MEDS: Insulin Lispro 100 UNIT/ML 10 ML VIAL SC PRN ×2 (01:47→05:30)
[2024-02-08] MEDS: cefTRIAXone\\ROCEPHIN 1 GM in Sodium Chloride 0.9% 100 ML IVPB SCH (02:49)
[2024-02-08] MEDS: HYDROcodone/Acetaminophen 5/325 mg Tablet PO SCH (05:14)
[2024-02-08 07:02] LABS: #Basophils 0.04 10x3/uL (0.0-0.2); %Basophils 0.7 % (0.0-1.0); %Eosinophils 1.5 % (0.0-10.0); %Lymphocytes 8.4 % (21.0-51.0); %Monocytes 15.8 % (0.0-10.0); %Neutrophils 73.1 % (42.0-75.0); Hematocrit 32.3 % (42.0-52.0); Hemoglobin 9.9 g/dL (14.0-18.0); Mean Corpuscular HGB CONC 30.7 g/dL (32.0-36.0); Mean Corpuscular Hemoglobin 30.6 pg (27.0-31.0); Mean Corpuscular Volume 99.7 fL (78.0-98.0); Mean Platelet Volume 11.4 fL (7.4-10.4); Platelet Count 191 10x3/uL (130-400); RBC Distribution Width 16.4 % (11.5-14.5); Red Blood Cell (RBC) Count 3.24 mill/uL (4.70-6.10)
[2024-02-08 07:50] LABS: Anion Gap 16 mmol/L (10-20); BUN (Urea Nitrogen) 33 mg/dL (8.4-25.7); Calc. Creatinine Clearance 17 mL/min (70-130); Calcium 8.7 mg/dL (7.8-10.44); Carbon Dioxide 22 mmol/L (23-31); Chloride 99 mmol/L (98-107); Estimated GFR 13; Glucose 281 mg/dL (83-110); Potassium 3.7 mmol/L (3.5-5.1); Sodium 133 mmol/L (136-145)
[2024-02-08] MEDS: Calcitriol 0.25 MCG CAP PO SCH (09:40)
[2024-02-08] MEDS: Escitalopram Oxalate 10 mg Tablet PO SCH (09:41)
[2024-02-08] MEDS: Clopidogrel Bisulfate 75 MG TAB PO SCH (09:41)
[2024-02-08] MEDS: Aspirin 81 mg Enteric Coated Tablet PO SCH (09:41)
[2024-02-08 14:50] LABS: Vancomycin, Trough 19.7 ug/mL
[2024-02-08] MEDS: Acetaminophen 325 MG TAB PO PRN (15:43)
[2024-02-08] MEDS: Cholecalciferol 1,000 UNITS (25 MCG) TAB PO SCH (20:21)
[2024-02-08] MEDS ORDERED: Atorvastatin Calcium 40 MG TAB PO SCH (21:00)
[2024-02-08] MEDS: diphenhydrAMINE 25 MG CAP PO SCH (23:33)
[2024-02-09] MEDS: Ondansetron ODT 4 MG TAB PO PRN (01:34)
[2024-02-09 05:01] LABS: #Basophils 0.05 10x3/uL (0.0-0.2); %Lymphocytes 12.8 % (21.0-51.0); %Monocytes 15.2 % (0.0-10.0); %Neutrophils 68.2 % (42.0-75.0); Hematocrit 33.2 % (42.0-52.0); Hemoglobin 10.2 g/dL (14.0-18.0); Mean Corpuscular HGB CONC 30.7 g/dL (32.0-36.0); Mean Corpuscular Hemoglobin 30.6 pg (27.0-31.0); Mean Corpuscular Volume 99.7 fL (78.0-98.0); Mean Platelet Volume 11.2 fL (7.4-10.4); Platelet Count 164 10x3/uL (130-400); RBC Distribution Width 16.9 % (11.5-14.5); Red Blood Cell (RBC) Count 3.33 mill/uL (4.70-6.10)
[2024-02-09 05:34] LABS: Anion Gap 15 mmol/L (10-20); BUN (Urea Nitrogen) 32 mg/dL (8.4-25.7); Calc. Creatinine Clearance 18 mL/min (70-130); Calcium 8.7 mg/dL (7.8-10.44); Carbon Dioxide 23 mmol/L (23-31); Chloride 102 mmol/L (98-107); Estimated GFR 15; Glucose 295 mg/dL (83-110); Potassium 4.4 mmol/L (3.5-5.1); Sodium 136 mmol/L (136-145)
[2024-02-09] MEDS: Lorazepam 0.5 MG TAB PO SCH ×2 (06:10→23:14)
[2024-02-10 06:34] LABS: #Basophils 0.04 10x3/uL (0.0-0.2); %Basophils 0.7 % (0.0-1.0); %Eosinophils 3.1 % (0.0-10.0); %Lymphocytes 13.6 % (21.0-51.0); %Monocytes 16.8 % (0.0-10.0); %Neutrophils 65.1 % (42.0-75.0); Hematocrit 35.5 % (42.0-52.0); Hemoglobin 10.8 g/dL (14.0-18.0); Mean Corpuscular HGB CONC 30.4 g/dL (32.0-36.0); Mean Corpuscular Hemoglobin 30.8 pg (27.0-31.0); Mean Corpuscular Volume 101.1 fL (78.0-98.0); Mean Platelet Volume 11.5 fL (7.4-10.4); Platelet Count 178 10x3/uL (130-400); RBC Distribution Width 17.2 % (11.5-14.5); Red Blood Cell (RBC) Count 3.51 mill/uL (4.70-6.10)
[2024-02-10 07:27] LABS: Anion Gap 19 mmol/L (10-20); BUN (Urea Nitrogen) 47 mg/dL (8.4-25.7); Calc. Creatinine Clearance 15 mL/min (70-130); Calcium 9.4 mg/dL (7.8-10.44); Carbon Dioxide 22 mmol/L (23-31); Chloride 100 mmol/L (98-107); Estimated GFR 11; Glucose 155 mg/dL (83-110); Potassium 4.4 mmol/L (3.5-5.1); Sodium 137 mmol/L (136-145)
[2024-02-10 08:17] LABS: Vancomycin, Trough 21.7 ug/mL
[2024-02-10] MEDS: Docusate 100 MG CAP PO PRN (11:35)
[2024-02-10] MEDS: Ondansetron PF 4 MG/2 ML Vial IVP PRN (13:08)
[2024-02-10] MEDS: Vancomycin 250 MG in Sodium Chloride 0.9% 100 ML IVPB SCH (21:24)
[2024-02-10] MEDS: Morphine 2 MG/ML VIAL SLOW IVP PRN (22:58)
[2024-02-11] MEDS: Lorazepam 2 MG/ML VIAL SLOW IVP SCH (02:43)
[2024-02-11 04:48] LABS: #Basophils 0.03 10x3/uL (0.0-0.2); %Basophils 0.6 % (0.0-1.0); %Lymphocytes 12.2 % (21.0-51.0); %Monocytes 16.1 % (0.0-10.0); %Neutrophils 68.7 % (42.0-75.0); Hematocrit 34.2 % (42.0-52.0); Hemoglobin 10.5 g/dL (14.0-18.0); Mean Corpuscular HGB CONC 30.7 g/dL (32.0-36.0); Mean Corpuscular Volume 100.9 fL (78.0-98.0); Mean Platelet Volume 11.2 fL (7.4-10.4); Platelet Count 161 10x3/uL (130-400); RBC Distribution Width 17.4 % (11.5-14.5); Red Blood Cell (RBC) Count 3.39 mill/uL (4.70-6.10)
[2024-02-11 05:11] LABS: Anion Gap 17 mmol/L (10-20); BUN (Urea Nitrogen) 35 mg/dL (8.4-25.7); Calc. Creatinine Clearance 20 mL/min (70-130); Calcium 8.9 mg/dL (7.8-10.44); Carbon Dioxide 25 mmol/L (23-31); Chloride 97 mmol/L (98-107); Estimated GFR 16; Glucose 294 mg/dL (83-110); Potassium 4.2 mmol/L (3.5-5.1); Sodium 135 mmol/L (136-145)
[2024-02-12] MEDS: Lorazepam 2 MG/ML VIAL SLOW IVP SCH (01:48)
[2024-02-12] MEDS: Vancomycin HCl 750 MG in Sodium Chloride 0.9% 250 ML 250 ML IVPB SCH (16:35)
[2024-02-12] MEDS: Polyethylene Glycol 3350 17 GM Packet PO PRN (20:48)
[2024-02-13] MEDS: hydrOXYzine 25 MG TAB PO SCH (00:12)
[2024-02-13 08:09] VITALS: TEMP 97.6
[2024-02-13 18:05] VITALS: BP 179/79
== END 2024-02-13 18:49 | DRG 602 ==
LOC: ERS 13:52 → OBSVTOIN 16:26 → MSONC 16:26
PROVIDERS: ADMIT Internal Medicine; ATTEND Internal Medicine
DX: L03.116 Cellulitis of left lower limb (principal); N18.6 End stage renal disease; I50.42 Chronic combined systolic (congestive) and diastolic (congestive) heart failure; I13.0 Hypertensive heart and chronic kidney disease with heart failure and stage 1 through stage 4 chronic kidney disease, or unspecified chronic kidney disease; N20.1 Calculus of ureter; L03.115 Cellulitis of right lower limb; E11.22 Type 2 diabetes mellitus with diabetic chronic kidney disease; I25.10 Atherosclerotic heart disease of native coronary artery without angina pectoris; F41.9 Anxiety disorder, unspecified; F32.A Depression, unspecified; E78.5 Hyperlipidemia, unspecified; D63.1 Anemia in chronic kidney disease; Z88.0 Allergy status to penicillin; Z88.8 Allergy status to other drugs, medicaments and biological substances; Z79.899 Other long term (current) drug therapy; Z79.4 Long term (current) use of insulin; I25.2 Old myocardial infarction; Z90.49 Acquired absence of other specified parts of digestive tract; Z99.2 Dependence on renal dialysis; Z79.82 Long term (current) use of aspirin; Z66 Do not resuscitate
CPT/HCPCS: 36415; 36416; 76770; 80048; 80053; 80202; 83605; 83735; 84100; 85025; 87040; 87070; 87205; 93970; 96365; 96367; J0692; J0696; J1644; J1815; J2060; J2272; J2405; J3370; J3370-JW; J3371; J3490; J7050; Q0162

== ENCOUNTER 2024-02-24 02:14 | Inpatient (IN) | payer MEDICARE, MEDICAID ==
[2024-02-24 03:51] LABS: RBC Count-Automated (BF) 505 /cu.mm; WBC/Nucleated-Auto (BF) 757 /cu.mm
[2024-02-24 03:52] LABS: Body Fluid Source Peritoneal Fluid; Clarity Hazy (Clear); Tube # STERILE CUP
[2024-02-24 03:53] LABS: BF Color Yellow
[2024-02-24 04:11] LABS: Bacteria/HPF None Seen HPF (None Seen); Bilirubin Negative (Negative); Blood, Urine 1+ (Negative); CAUTI Indications for Culture Dysuria,urgency,freq; Clarity Clear (Clear); Glucose, Urine (Dipstick) 100 mg/dL (Negative); Ketone, Urine Negative (Negative); Leukocyte 25 Leu/uL (Negative); Nitrite Negative (Negative); Protein, Urine (Dipstick) 300 mg/dL (Neg-Trace); RBC/HPF 0-3 HPF (0-3); Specific Gravity, Urine 1.017 (1.002-1.036); Squamous Epithelial 0-3 HPF (0-3); Urobilinogen Normal mg/dL (Less than 2)
[2024-02-24 04:14] LABS: #Basophils 0.06 10x3/uL (0.0-0.2); %Basophils 0.6 % (0.0-1.0); %Eosinophils 1.1 % (0.0-10.0); %Lymphocytes 9.4 % (21.0-51.0); %Monocytes 12.8 % (0.0-10.0); %Neutrophils 75.6 % (42.0-75.0); Hemoglobin 12.5 g/dL (14.0-18.0); Mean Corpuscular HGB CONC 32.1 g/dL (32.0-36.0); Mean Corpuscular Hemoglobin 30.9 pg (27.0-31.0); Mean Corpuscular Volume 96.3 fL (78.0-98.0); Mean Platelet Volume 11.5 fL (7.4-10.4); Platelet Count 185 10x3/uL (130-400); RBC Distribution Width 16.6 % (11.5-14.5); Red Blood Cell (RBC) Count 4.05 mill/uL (4.70-6.10)
[2024-02-24 04:23] LABS: ALT (SGPT) 16 U/L (8-55); AST (SGOT) 25 U/L (5-34); Albumin 3.2 g/dL (3.4-4.8); Alkaline Phosphatase 142 U/L (40-110); Anion Gap 22 mmol/L (10-20); BUN (Urea Nitrogen) 68 mg/dL (8.4-25.7); Bilirubin, Total 0.8 mg/dL (0.2-1.2); Calc. Creatinine Clearance 0 mL/min (70-130); Calcium 9.8 mg/dL (7.8-10.44); Carbon Dioxide 23 mmol/L (23-31); Chloride 96 mmol/L (98-107); Estimated GFR 9; Glucose 32 mg/dL (83-110); Magnesium 2.3 mg/dL (1.6-2.6); Potassium 3.9 mmol/L (3.5-5.1); Protein, Total 7.2 g/dL (5.8-8.1); Sodium 137 mmol/L (136-145)
[2024-02-24 04:32] LABS: Urine Culture Reflex Yes Yes
[2024-02-24] MEDS ORDERED: cefTRIAXone (ROCEPHIN) 2 GM VIAL ONE (06:42)
[2024-02-24] MEDS ORDERED: Sodium Chloride 0.9% 100 ML ONE (06:43)
[2024-02-24 06:56] LABS: BF Segmented Neutrophils 44 %; Cell Count Non Hematic 12 %; Lymphocytes 44 %
[2024-02-24] MEDS: Dextrose 50% Abboject 50 ML SYRINGE SLOW IVP SCH (08:01)
[2024-02-24] MEDS ORDERED: Polyethylene Glycol 3350 17 GM Packet PO PRN (09:21)
[2024-02-24] MEDS ORDERED: traZODone HCl 50 MG TAB PO PRN (09:21)
[2024-02-24] MEDS ORDERED: Acetaminophen 650 MG Suppository PR PRN (09:24)
[2024-02-24] MEDS: Morphine 2 MG/ML VIAL SLOW IVP SCH (09:29)
[2024-02-24] MEDS: Sacubitril 24MG/Valsartan 26 MG TAB PO SCH (20:33)
[2024-02-24] MEDS: Metoprolol Tartrate 25 MG TAB PO SCH (20:34)
[2024-02-24] MEDS: Atorvastatin Calcium 40 MG TAB PO SCH (20:34)
[2024-02-24] MEDS: Ranolazine ER 500 MG TAB PO SCH (20:34)
[2024-02-24] MEDS ORDERED: Glucagon 1 MG/ML KIT IM PRN (20:35)
[2024-02-24] MEDS ORDERED: Dextrose 5% in Water 1,000 ML IV PRN (20:35)
[2024-02-24] MEDS ORDERED: Dextrose 50% Abboject 50 ML SYRINGE SLOW IVP PRN (20:35)
[2024-02-24] MEDS: Cholecalciferol 1,000 UNITS (25 MCG) TAB PO SCH (20:35)
[2024-02-24] MEDS: Midodrine HCl 5 MG TAB PO SCH (20:36)
[2024-02-24] MEDS ORDERED: Non-Formulary Item 1 EACH (Midodrine Hcl [Midodrine Hcl] 2.5 MG Tablet) PO SCH (21:00)
[2024-02-24] MEDS ORDERED: Non-Formulary Item 1 EACH (Cholecalciferol (Vitamin D3) [Vitamin D3] 5,000 UNITS Capsule) PO SCH (21:00)
[2024-02-24] MEDS: Insulin Lispro 100 UNIT/ML 10 ML VIAL SC PRN (21:11)
[2024-02-24] MEDS: diphenhydrAMINE 25 MG CAP PO SCH (21:11)
[2024-02-24] MEDS: HYDROcodone/Acetaminophen 5/325 mg Tablet PO PRN (23:12)
[2024-02-25 06:02] LABS: #Basophils 0.04 10x3/uL (0.0-0.2); %Basophils 0.6 % (0.0-1.0); %Eosinophils 1.6 % (0.0-10.0); %Lymphocytes 11.4 % (21.0-51.0); %Monocytes 13.6 % (0.0-10.0); %Neutrophils 72.4 % (42.0-75.0); Hematocrit 38.9 % (42.0-52.0); Hemoglobin 11.7 g/dL (14.0-18.0); Mean Corpuscular HGB CONC 30.1 g/dL (32.0-36.0); Mean Corpuscular Hemoglobin 30.4 pg (27.0-31.0); Mean Platelet Volume 11.9 fL (7.4-10.4); Platelet Count 149 10x3/uL (130-400); Red Blood Cell (RBC) Count 3.85 mill/uL (4.70-6.10)
[2024-02-25 07:00] LABS: ALT (SGPT) 16 U/L (8-55); AST (SGOT) 28 U/L (5-34); Albumin 2.9 g/dL (3.4-4.8); Alkaline Phosphatase 160 U/L (40-110); Anion Gap 23 mmol/L (10-20); BUN (Urea Nitrogen) 46 mg/dL (8.4-25.7); Bilirubin, Total 0.5 mg/dL (0.2-1.2); Calc. Creatinine Clearance 14 mL/min (70-130); Calcium 9.2 mg/dL (7.8-10.44); Carbon Dioxide 22 mmol/L (23-31); Chloride 99 mmol/L (98-107); Estimated GFR 12; Globulin 3.8 g/dL (2.4-3.5); Glucose 90 mg/dL (83-110); Protein, Total 6.7 g/dL (5.8-8.1); Sodium 139 mmol/L (136-145)
[2024-02-25] MEDS: Lactulose 20 GM (30 mL) UDCUP PO SCH (08:28)
[2024-02-25] MEDS: Multivitamin w/Zinc Stress 1 TAB PO SCH (08:30)
[2024-02-25] MEDS: Calcitriol 0.25 MCG CAP PO SCH (08:30)
[2024-02-25] MEDS: Clopidogrel Bisulfate 75 MG TAB PO SCH (08:31)
[2024-02-25] MEDS: Aspirin 81 mg Enteric Coated Tablet PO SCH (08:32)
[2024-02-25] MEDS: Escitalopram Oxalate 10 mg Tablet PO SCH (08:32)
[2024-02-25] MEDS: Mirabegron ER 25 MG ER.TAB PO SCH (08:32)
[2024-02-25] MEDS: Pantoprazole DR 40 MG TAB PO SCH (08:33)
[2024-02-25] MEDS: cefTRIAXone\\ROCEPHIN 2 GM in Sodium Chloride 0.9% 100 ML IVPB SCH (08:34)
[2024-02-25] MEDS ORDERED: FOLIC ACID PO SCH (09:00)
[2024-02-25] MEDS ORDERED: Non-Formulary Item 1 EACH (Esomeprazole Magnesium [Nexium] 40 MG Cap) PO SCH (09:00)
[2024-02-25] MEDS ORDERED: [UNRECOGNIZED DRUG - OTHER] PO SCH (09:00)
[2024-02-25] MEDS ORDERED: FERROUS FUM PO SCH (09:00)
[2024-02-25] MEDS ORDERED: Non-Formulary Item 1 EACH (Lactulose [Lactulose] 10 GM Packet) PO SCH (09:00)
[2024-02-25] MEDS ORDERED: Non-Formulary Item 1 EACH (Escitalopram Oxalate [Escitalopram Oxalate] 5 MG Tablet) PO SCH (09:00)
[2024-02-25] MEDS: Acetaminophen 325 MG TAB PO PRN (21:02)
[2024-02-26] MEDS ORDERED: Sodium Chloride 0.9% 100 ML ONE (08:28)
[2024-02-26] MEDS ORDERED: cefTRIAXone (ROCEPHIN) 2 GM VIAL ONE (08:28)
[2024-02-26] MEDS ORDERED: EPINEPHrine 1 MG/ML VIAL ONE (08:50)
[2024-02-26] MEDS ORDERED: Bupivacaine PF 0.5% 30 ML VIAL ONE (08:51)
[2024-02-26] MEDS ORDERED: Lidocaine 1% (PF) 30 ML VIAL ONE (08:51)
[2024-02-26] MEDS ORDERED: Etomidate 40 MG (20 mL) VIAL ONE (08:58)
[2024-02-26] MEDS ORDERED: PROPOFOL 20 ML ONE (09:01)
[2024-02-26] MEDS ORDERED: Ondansetron PF 4 MG/2 ML Vial ONE ×2 (09:01→10:24)
[2024-02-26] MEDS ORDERED: Ketamine In 0.9 % NaCl 50 MG/5 ML SYRINGE ONE (09:01)
[2024-02-26] MEDS ORDERED: Lidocaine 1% PF 5 ML VIAL ONE (09:01)
[2024-02-26] MEDS ORDERED: Glycopyrrolate 0.2 MG/ML 5 ML SYRINGE ONE (09:01)
[2024-02-26] MEDS ORDERED: PHENYLEPHRINE-NS 100 MCG/ML 10 ML SYRINGE ONE (09:03)
[2024-02-26] MEDS ORDERED: Dexamethasone 20 MG/5 ML VIAL ONE (09:03)
[2024-02-26] MEDS: Morphine 2 MG/ML VIAL SLOW IVP PRN (15:48)
[2024-02-26] MEDS: Lidocaine 4% Patch TD SCH (17:48)
[2024-02-26] MEDS: Methocarbamol 1 GM in Sodium Chloride 0.9% 100 ML IVPB SCH (17:51)
[2024-02-26] MEDS: Docusate 100 MG CAP PO PRN (18:05)
[2024-02-26] MEDS: Lactulose 20 GM (30 mL) UDCUP PO SCH (20:53)
[2024-02-26] MEDS: Senokot S 8.6-50 MG TAB PO SCH (20:55)
[2024-02-26] MEDS: HYDROcodone/Acetaminophen 5/325 mg Tablet PO PRN (20:56)
[2024-02-26] MEDS: diphenhydrAMINE 25 MG CAP PO PRN (20:56)
[2024-02-27] MEDS: Transdermal Patch Removal TOP SCH (05:21)
[2024-02-27 05:42] LABS: #Basophils Less than 0.03 10x3/uL (0.0-0.2); #Eosinphils Less than 0.03 10x3/uL (0.0-0.7); %Basophils 0.1 % (0.0-1.0); %Lymphocytes 3.6 % (21.0-51.0); %Monocytes 5.6 % (0.0-10.0); %Neutrophils 90.3 % (42.0-75.0); Hematocrit 36.5 % (42.0-52.0); Hemoglobin 11.2 g/dL (14.0-18.0); Mean Corpuscular HGB CONC 30.7 g/dL (32.0-36.0); Mean Corpuscular Hemoglobin 30.9 pg (27.0-31.0); Mean Corpuscular Volume 100.6 fL (78.0-98.0); Mean Platelet Volume 11.9 fL (7.4-10.4); Platelet Count 170 10x3/uL (130-400); RBC Distribution Width 16.7 % (11.5-14.5); Red Blood Cell (RBC) Count 3.63 mill/uL (4.70-6.10)
[2024-02-27 06:17] LABS: Anion Gap 22 mmol/L (10-20); BUN (Urea Nitrogen) 50 mg/dL (8.4-25.7); Calc. Creatinine Clearance 14 mL/min (70-130); Calcium 9.3 mg/dL (7.8-10.44); Carbon Dioxide 21 mmol/L (23-31); Chloride 98 mmol/L (98-107); Estimated GFR 11; Glucose 303 mg/dL (83-110); Potassium 5.3 mmol/L (3.5-5.1); Sodium 136 mmol/L (136-145)
[2024-02-27 06:18] LABS: CRP,High Sensitivity (Inhouse) 3.37 mg/dL (< or = 0.5)
[2024-02-27] MEDS: LevoFLOXacin 750 MG TAB PO SCH (10:14)
[2024-02-27] MEDS: LOKELMA 10 GM PACKET PO SCH (12:03)
[2024-02-27] MEDS: metroNIDAZOLE 500 MG in Premix 1 BAG IVPB SCH (13:56)
[2024-02-27] MEDS: Sodium Chloride 0.9% 500 ML IV SCH (16:55)
[2024-02-27] MEDS: Insulin Regular, Human 100 UNIT/ML 10 ML VIAL SC SCH (16:55)
[2024-02-27] MEDS: Insulin Glargine 30 UNITS/0.3 ML VIAL SC SCH (20:42)
[2024-02-27] MEDS ORDERED: Insulin Glargine 30 UNITS/0.3 ML VIAL SC SCH (21:00)
[2024-02-28] MEDS: Ondansetron ODT 4 MG TAB PO PRN (01:15)
[2024-02-28] MEDS: Ondansetron PF 4 MG/2 ML Vial IVP PRN (12:41)
[2024-02-28] MEDS ORDERED: Lidocaine 4% Patch TD SCH (13:45)
[2024-02-28] MEDS: Lorazepam 2 MG/ML VIAL SLOW IVP SCH (14:04)
[2024-02-28 20:41] LABS: #Basophils Less than 0.03 10x3/uL (0.0-0.2); %Basophils 0.1 % (0.0-1.0); %Eosinophils 2.8 % (0.0-10.0); %Lymphocytes 4.9 % (21.0-51.0); %Neutrophils 81.7 % (42.0-75.0); Hematocrit 32.8 % (42.0-52.0); Hemoglobin 10.4 g/dL (14.0-18.0); Mean Corpuscular HGB CONC 31.7 g/dL (32.0-36.0); Mean Corpuscular Volume 97.6 fL (78.0-98.0); Mean Platelet Volume 11.3 fL (7.4-10.4); Platelet Count 148 10x3/uL (130-400); RBC Distribution Width 16.9 % (11.5-14.5); Red Blood Cell (RBC) Count 3.36 mill/uL (4.70-6.10)
[2024-02-28 20:47] LABS: Hemoglobin A1c 7.5 % (4.0-6.0)
[2024-02-28 21:02] LABS: Anion Gap 18 mmol/L (10-20); BUN (Urea Nitrogen) 44 mg/dL (8.4-25.7); Calc. Creatinine Clearance 15 mL/min (70-130); Calcium 8.7 mg/dL (7.8-10.44); Carbon Dioxide 22 mmol/L (23-31); Chloride 99 mmol/L (98-107); Estimated GFR 12; Glucose 250 mg/dL (83-110); Potassium 4.6 mmol/L (3.5-5.1); Sodium 134 mmol/L (136-145)
[2024-02-28] MEDS: Transdermal Patch Removal TOP SCH (21:33)
[2024-02-29 07:01] LABS: #Basophils Less than 0.03 10x3/uL (0.0-0.2); %Basophils 0.2 % (0.0-1.0); %Lymphocytes 6.7 % (21.0-51.0); %Monocytes 11.3 % (0.0-10.0); %Neutrophils 77.3 % (42.0-75.0); Hematocrit 33.6 % (42.0-52.0); Hemoglobin 10.5 g/dL (14.0-18.0); Mean Corpuscular HGB CONC 31.3 g/dL (32.0-36.0); Mean Corpuscular Hemoglobin 30.1 pg (27.0-31.0); Mean Corpuscular Volume 96.3 fL (78.0-98.0); Mean Platelet Volume 11.7 fL (7.4-10.4); Platelet Count 161 10x3/uL (130-400); RBC Distribution Width 16.9 % (11.5-14.5); Red Blood Cell (RBC) Count 3.49 mill/uL (4.70-6.10)
[2024-02-29 07:22] LABS: Anion Gap 17 mmol/L (10-20); BUN (Urea Nitrogen) 49 mg/dL (8.4-25.7); Calc. Creatinine Clearance 14 mL/min (70-130); Calcium 8.9 mg/dL (7.8-10.44); Carbon Dioxide 23 mmol/L (23-31); Chloride 100 mmol/L (98-107); Estimated GFR 11; Glucose 113 mg/dL (83-110); Potassium 4.7 mmol/L (3.5-5.1); Sodium 135 mmol/L (136-145)
[2024-02-29] MEDS: LevoFLOXacin 500 MG TAB PO SCH (07:49)
[2024-02-29] MEDS: Lidocaine 4% Patch TD SCH (07:50)
[2024-02-29] MEDS: Morphine 4 MG/ML VIAL SLOW IVP PRN (08:14)
[2024-03-01 07:03] LABS: #Basophils 0.03 10x3/uL (0.0-0.2); %Basophils 0.3 % (0.0-1.0); %Lymphocytes 9.3 % (21.0-51.0); %Monocytes 10.9 % (0.0-10.0); %Neutrophils 75.9 % (42.0-75.0); Hematocrit 34.6 % (42.0-52.0); Hemoglobin 10.9 g/dL (14.0-18.0); Mean Corpuscular HGB CONC 31.5 g/dL (32.0-36.0); Mean Corpuscular Hemoglobin 30.6 pg (27.0-31.0); Mean Corpuscular Volume 97.2 fL (78.0-98.0); Platelet Count 151 10x3/uL (130-400); RBC Distribution Width 16.9 % (11.5-14.5); Red Blood Cell (RBC) Count 3.56 mill/uL (4.70-6.10)
[2024-03-01 07:47] LABS: Anion Gap 17 mmol/L (10-20); BUN (Urea Nitrogen) 65 mg/dL (8.4-25.7); Calc. Creatinine Clearance 12 mL/min (70-130); Calcium 9.2 mg/dL (7.8-10.44); Carbon Dioxide 22 mmol/L (23-31); Chloride 98 mmol/L (98-107); Estimated GFR 9; Glucose 163 mg/dL (83-110); Potassium 5.1 mmol/L (3.5-5.1); Sodium 132 mmol/L (136-145)
[2024-03-01] MEDS: metroNIDAZOLE 250 MG TAB PO SCH (21:19)
[2024-03-01] MEDS: Lorazepam 2 MG/ML VIAL SLOW IVP SCH (23:27)
[2024-03-02 07:00] LABS: #Basophils Less than 0.03 10x3/uL (0.0-0.2); %Basophils 0.2 % (0.0-1.0); %Lymphocytes 8.5 % (21.0-51.0); %Monocytes 10.4 % (0.0-10.0); %Neutrophils 78.3 % (42.0-75.0); Hematocrit 34.1 % (42.0-52.0); Hemoglobin 10.7 g/dL (14.0-18.0); Mean Corpuscular HGB CONC 31.4 g/dL (32.0-36.0); Mean Corpuscular Hemoglobin 31.1 pg (27.0-31.0); Mean Corpuscular Volume 99.1 fL (78.0-98.0); Platelet Count 129 10x3/uL (130-400); RBC Distribution Width 17.5 % (11.5-14.5); Red Blood Cell (RBC) Count 3.44 mill/uL (4.70-6.10)
[2024-03-02 07:18] LABS: Anion Gap 23 mmol/L (10-20); BUN (Urea Nitrogen) 81 mg/dL (8.4-25.7); Calc. Creatinine Clearance 10 mL/min (70-130); Calcium 9.2 mg/dL (7.8-10.44); Carbon Dioxide 19 mmol/L (23-31); Chloride 98 mmol/L (98-107); Estimated GFR 7; Glucose 128 mg/dL (83-110); Potassium 5.9 mmol/L (3.5-5.1); Sodium 134 mmol/L (136-145)
[2024-03-02] MEDS: Lorazepam 0.5 MG TAB PO SCH (08:34)
[2024-03-02] MEDS: Insulin Glargine 30 UNITS/0.3 ML VIAL SC SCH (08:42)
[2024-03-02] MEDS ORDERED: Heparin 10,000 UNITS/ 10 ML VIAL ONE (15:51)
[2024-03-02 20:42] VITALS: BP 112/58; TEMP 97.5
[2024-03-03 05:39] VITALS: BMI 31.3
[2024-03-03 06:51] LABS: #Basophils Less than 0.03 10x3/uL (0.0-0.2); %Basophils 0.1 % (0.0-1.0); %Eosinophils 1.6 % (0.0-10.0); %Lymphocytes 7.3 % (21.0-51.0); %Monocytes 10.3 % (0.0-10.0); %Neutrophils 80.2 % (42.0-75.0); Hematocrit 34.9 % (42.0-52.0); Mean Corpuscular HGB CONC 31.5 g/dL (32.0-36.0); Mean Corpuscular Hemoglobin 31.4 pg (27.0-31.0); Mean Corpuscular Volume 99.7 fL (78.0-98.0); Mean Platelet Volume 12.6 fL (7.4-10.4); Platelet Count 145 10x3/uL (130-400); RBC Distribution Width 18.2 % (11.5-14.5)
[2024-03-03 07:12] LABS: Anion Gap 22 mmol/L (10-20); BUN (Urea Nitrogen) 69 mg/dL (8.4-25.7); Calc. Creatinine Clearance 12 mL/min (70-130); Calcium 9.1 mg/dL (7.8-10.44); Carbon Dioxide 19 mmol/L (23-31); Chloride 99 mmol/L (98-107); Estimated GFR 8; Glucose 136 mg/dL (83-110); Potassium 5.5 mmol/L (3.5-5.1); Sodium 134 mmol/L (136-145)
[2024-03-03 15:47] VITALS: BMI 31.3
[2024-03-03] MEDS ORDERED: Heparin 10,000 UNITS/ 10 ML VIAL ONE (15:54)
== END 2024-03-03 19:10 | DRG 919 ==
LOC: ERS 02:14 → T4-B 07:21 → OBSVTOIN 02-25 10:52
PROVIDERS: ADMIT Student in an Organized Health Care Education/Training Program; ATTEND Internal Medicine
PROC: 5A1D70Z Performance of Urinary Filtration, Intermittent, Less than 6 Hours Per Day (ICD-10-PCS; 2024-02-24)
PROC: 3E03329 Introduction of Other Anti-infective into Peripheral Vein, Percutaneous Approach (ICD-10-PCS; 2024-02-25)
PROC: 0WPGX3Z Removal of Infusion Device from Peritoneal Cavity, External Approach (ICD-10-PCS; principal; 2024-02-26)
PROC: 3E033XZ Introduction of Vasopressor into Peripheral Vein, Percutaneous Approach (ICD-10-PCS; 2024-02-26)
DX: T85.71XA Infection and inflammatory reaction due to peritoneal dialysis catheter, initial encounter (principal); A41.9 Sepsis, unspecified organism; G93.41 Metabolic encephalopathy; K65.9 Peritonitis, unspecified; N18.6 End stage renal disease; I13.0 Hypertensive heart and chronic kidney disease with heart failure and stage 1 through stage 4 chronic kidney disease, or unspecified chronic kidney disease; E87.1 Hypo-osmolality and hyponatremia; I50.42 Chronic combined systolic (congestive) and diastolic (congestive) heart failure; E87.20 Acidosis, unspecified; D63.1 Anemia in chronic kidney disease; E88.09 Other disorders of plasma-protein metabolism, not elsewhere classified; E66.9 Obesity, unspecified; Z68.31 Body mass index [BMI] 31.0-31.9, adult; E78.5 Hyperlipidemia, unspecified; E11.22 Type 2 diabetes mellitus with diabetic chronic kidney disease; Z66 Do not resuscitate; Z79.899 Other long term (current) drug therapy; E87.5 Hyperkalemia; N20.0 Calculus of kidney; E11.42 Type 2 diabetes mellitus with diabetic polyneuropathy; E11.649 Type 2 diabetes mellitus with hypoglycemia without coma; Z51.5 Encounter for palliative care
CPT/HCPCS: 36415; 36416; 51701; 70450; 74176; 74230; 80048; 80053; 81001; 83036; 83735; 85025; 85060; 86141; 87070; 87071; 87086; 87205; 89051; 90935; 93005; 94660; 96374; 96375; 96376; A6258; G0257; G0378; J0171; J0665; J0696; J1100; J1644; J1815; J2001; J2060; J2270; J2272; J2405; J2704; J3490; J7050; J7999; Q0162

== ENCOUNTER 2024-03-31 09:57 | Outpatient (CLI) | payer MEDICARE, MEDICAID | END 2024-03-31 09:58 | disposition home or self-care (01) | LOC: CT 09:57 | PROVIDERS: ATTEND Family Medicine | DX: R10.84 Generalized abdominal pain (principal); J90 Pleural effusion, not elsewhere classified; J98.4 Other disorders of lung; R18.8 Other ascites; N28.89 Other specified disorders of kidney and ureter | CPT/HCPCS: 74176 ==